=== PATIENT | female | born 1970 | race Caucasian/White ===

== ENCOUNTER → 2017-06-28 | Outpatient (REF) | payer MEDICARE, OTHER ==
[~2017-06-28] MED LIST: /PANT40TA PO; CALC1CAP31 PO; CARV25TA PO; CINA30TA PO; CIPR250T2 PO; COLA50CA3 PO; CORE25TA PO; DEPA500T2 PO; DEPO150I IM; EPOG2000 INJ; EPOG4000 SQ; FERR325T16 PO; FOLI1TAB4 PO; GABA-279 PO; K-TA10TA PO; MECL-68 PO; PANT40TA2 PO; POTA20TA PO; POTA75TA PO; PRIS50TA PO; RENATAB5 PO; RENV2TAB PO; SENS90TA PO; TYLE325T5 PO; VITA100037 PO; XANA0.25 PO; ZOLO20CO PO; ZOLO25TA PO; ZOLO50TA PO; [UNRECOGNIZED DRUG - OTHER] IM
== END ==
LOC: M LAB REF 17:27
PROVIDERS: ATTEND Internal Medicine Nephrology
DX: Q61.2 Polycystic kidney, adult type (principal); N39.0 Urinary tract infection, site not specified

== ENCOUNTER 2017-07-10 11:15 | Day surgery (SDC) | payer MEDICARE, OTHER ==
[~2017-07-10] VITALS: Ht 157.5 cm; Wt 105.7 kg
[2017-07-10] MEDS ORDERED: NS 1,000 ML IV SCH (12:15)
[2017-07-10] MEDS ORDERED: LIDOCAINE 2% INJ 100 MG/5 ML SDV (FOR ANES.) As Ordered ONE (13:13)
[2017-07-10] MEDS ORDERED: PROPOFOL 200 MG/20 ML VIAL As Ordered ONE ×2 (13:13→13:29)
--- NOTE | 2017-07-10 14:08 | ROOR ---
Patient Name: April Toure Procedure Date: 07/10/2017 1:11 PM Date of : 1970 Age: 47 Room: [facility] Gender: Female Note Status: Finalized Procedure: Colonoscopy Indications: Unexplained iron deficiency anemia Providers: Ezequiel Vazquez MD Referring MD: Angely Alonso MD Requesting Provider: Medicines: Monitored Anesthesia Care Complications: No immediate complications. Procedure: Pre-Anesthesia Assessment: - Prior to the procedure, a History and Physical was performed, and patient medications and allergies were reviewed. The patient is competent. The risks and benefits of the procedure and the sedation options and risks were discussed with the patient. All questions were answered and informed consent was obtained. Patient identification and proposed procedure were verified by the physician, the nurse and the rug inspector helper in the procedure room. Mental Status Examination: alert and oriented. Airway Examination: normal oropharyngeal airway and neck mobility. Respiratory Examination: clear to auscultation. CV Examination: normal. Prophylactic Antibiotics: The patient does not require prophylactic antibiotics. Prior Anticoagulants: The patient has taken no previous anticoagulant or antiplatelet agents. ASA Grade Assessment: IV - A patient with severe systemic disease that is a constant threat to life. After reviewing the risks and benefits, the patient was deemed in satisfactory condition to undergo the procedure. The anesthesia plan was to use monitored anesthesia care (MAC). Immediately prior to administration of medications, the patient was re-assessed for adequacy to receive sedatives. The heart rate, respiratory rate, oxygen saturations, blood pressure, adequacy of pulmonary ventilation, and response to care were monitored throughout the procedure. The physical status of the patient was re-assessed after the procedure. The Colonoscope was introduced through the anus and advanced to the terminal ileum, with identification of the appendiceal orifice and IC valve. The colonoscopy was performed without difficulty. The patient tolerated the procedure well. The quality of the bowel preparation was adequate to identify polyps 6 mm and larger in size and fair. The terminal ileum, ileocecal valve, appendiceal orifice, and rectum were photographed. Scope insertion time was 3 minutes. Scope withdrawal time was 10 minutes. The total duration of the procedure was 15 minutes. Findings: The perianal and digital rectal examinations were normal. The terminal ileum appeared normal. Non-bleeding external and internal hemorrhoids were found during retroflexion. The hemorrhoids were small. The exam was otherwise without abnormality on direct and retroflexion views. Impression: - Preparation of the colon was fair. - The examined portion of the ileum was normal. - Non-bleeding external and internal hemorrhoids. - The examination was otherwise normal on direct and retroflexion views. - No specimens collected. Recommendation: - Patient has a contact number available for emergencies. The signs and symptoms of potential delayed complications were discussed with the patient. Return to normal activities tomorrow. Written discharge instructions were provided to the patient. - Resume previous diet. - Continue present medications. - To take Pnatoprazole 40 mg daily ( study manager) for 6 weeks. - Repeat colonoscopy in 5 years for screening purposes and because the bowel preparation was suboptimal. - Return to GI clinic as previously scheduled on 07/19/2017 ar 11:15 AM. - Return to primary care physician. Ezequiel Vazquez MD Ezequiel Vazquez MD 07/10/2017 2:07:48 PM This report has been signed electronically. Number of Addenda: 0 Note Initiated On: 07/10/2017 1:11 PM Estimated Blood Loss: Estimated blood loss was minimal.
[2017-07-10 14:30] VITALS: BP 145/77
--- NOTE | 2017-07-10 14:42 | ROOR ---
Patient Name: April Toure Procedure Date: 07/10/2017 1:09 PM Date of : 1970 Age: 47 Room: [facility] Gender: Female Note Status: Finalized Procedure: Upper GI endoscopy Indications: Iron deficiency anemia, Gastrointestinal bleeding of unknown origin Providers: Ezequiel Vazquez MD Referring MD: Angely Alonso MD Requesting Provider: Medicines: Monitored Anesthesia Care Complications: No immediate complications. Procedure: Pre-Anesthesia Assessment: - Prior to the procedure, a History and Physical was performed, and patient medications and allergies were reviewed. The patient is competent. The risks and benefits of the procedure and the sedation options and risks were discussed with the patient. All questions were answered and informed consent was obtained. Patient identification and proposed procedure were verified by the physician, the nurse and the construction administrator in the procedure room. Mental Status Examination: alert and oriented. Airway Examination: normal oropharyngeal airway and neck mobility. Respiratory Examination: clear to auscultation. CV Examination: normal. Prophylactic Antibiotics: The patient does not require prophylactic antibiotics. Prior Anticoagulants: The patient has taken no previous anticoagulant or antiplatelet agents. ASA Grade Assessment: IV - A patient with severe systemic disease that is a constant threat to life. After reviewing the risks and benefits, the patient was deemed in satisfactory condition to undergo the procedure. The anesthesia plan was to use monitored anesthesia care (MAC). Immediately prior to administration of medications, the patient was re-assessed for adequacy to receive sedatives. The heart rate, respiratory rate, oxygen saturations, blood pressure, adequacy of pulmonary ventilation, and response to care were monitored throughout the procedure. The physical status of the patient was re-assessed after the procedure. The Endoscope was introduced through the mouth, and advanced to the second part of duodenum. The upper GI endoscopy was accomplished without difficulty. The patient tolerated the procedure well. Findings: The examined esophagus was normal. The Z-line was regular and was found 37 cm from the incisors. 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 Coagulation for bleeding prevention using argon beam at 0.8 liters/minute and 35 phelps was successful. Multiple 5 to 10 mm sessile fundic gland polyps with no bleeding and no stigmata of recent bleeding were found in the gastric fundus and in the gastric body. Biopsies were taken with a cold forceps for histology. Verification of patient identification for the specimen was done by the physician and nurse using the patient's name, date and medical record number. Estimated blood loss was minimal. The duodenal bulb and second portion of the duodenum were normal. Biopsies for histology were taken with a cold forceps for evaluation of celiac disease. Impression: - Normal esophagus. - Z-line regular, 37 cm from the incisors. - Gastric antral vascular ectasia without bleeding. Treated with argon beam coagulation. - Multiple fundic gland polyps. Biopsied. - Normal duodenal bulb and second portion of the duodenum. Biopsied. Recommendation: - Patient has a contact number available for emergencies. The signs and symptoms of potential delayed complications were discussed with the patient. Return to normal activities tomorrow. Written discharge instructions were provided to the patient. - Resume previous diet. - Continue present medications. - Use Protonix (pantoprazole) 40 mg PO daily in morning (1/2 hour before breakfast) for 8 weeks. - Repeat upper endoscopy in 3 months for retreatment based on clinical course.. - Return to GI clinic as previously scheduled on 07/19/2017 at 11:15 AM. - Return to primary care physician. Ezequiel Vazquez MD Ezequiel Vazquez MD 07/10/2017 2:42:05 PM This report has been signed electronically. Number of Addenda: 0 Note Initiated On: 07/10/2017 1:09 PM Estimated Blood Loss: Estimated blood loss was minimal.
== END 2017-07-10 14:39 | disposition home or self-care (01) ==
LOC: M OPP 11:15 → EDSTATUS 12:55 → M OPP 14:39
PROVIDERS: ATTEND Internal Medicine Gastroenterology
DX: D50.9 Iron deficiency anemia, unspecified (principal); K64.4 Residual hemorrhoidal skin tags; K64.8 Other hemorrhoids; K92.2 Gastrointestinal hemorrhage, unspecified; K31.819 Angiodysplasia of stomach and duodenum without bleeding; K31.7 Polyp of stomach and duodenum; F41.9 Anxiety disorder, unspecified; I12.0 Hypertensive chronic kidney disease with stage 5 chronic kidney disease or end stage renal disease; F33.9 Major depressive disorder, recurrent, unspecified; N18.6 End stage renal disease; Q61.2 Polycystic kidney, adult type; N80.9 Endometriosis, unspecified; Z99.2 Dependence on renal dialysis; Z79.899 Other long term (current) drug therapy; Z88.5 Allergy status to narcotic agent

== ENCOUNTER → 2017-09-11 | Day surgery (SDC) | payer MEDICARE, OTHER ==
[~2017-09-11] VITALS: Ht 157.5 cm; Wt 104.3 kg
[~2017-09-11] MED LIST changes: +AURY1TAB PO; +HEPA1000VL PD; +LIDOCAINE 2% INJ 100 MG/5 ML SDV (FOR ANES.) As Ordered ONE; +NS 1,000 ML IV ONE; +PROPOFOL 500 MG/50 ML VIAL As Ordered ONE
[2017-09-11 13:28] VITALS: BP 116/66
--- NOTE | 2017-09-11 14:01 | ROOR ---
Patient Name: April Toure Procedure Date: 09/11/2017 12:25 PM Date of : 1970 Age: 47 Room: [facility] Gender: Female Note Status: Finalized Procedure: Upper GI endoscopy Indications: Treatment of bleeding vascular abnormality in the stomach, Watermelon stomach (GAVE syndrome) Providers: Ezequiel Vazquez MD Referring MD: Angely Alonso MD Requesting Provider: Medicines: Monitored Anesthesia Care Complications: No immediate complications. Procedure: Pre-Anesthesia Assessment: - Prior to the procedure, a History and Physical was performed, and patient medications and allergies were reviewed. The patient is competent. The risks and benefits of the procedure and the sedation options and risks were discussed with the patient. All questions were answered and informed consent was obtained. Patient identification and proposed procedure were verified by the physician, the nurse and the anesthesiologist in the procedure room. Mental Status Examination: alert and oriented. Airway Examination: normal oropharyngeal airway and neck mobility. Respiratory Examination: clear to auscultation. CV Examination: normal. Prophylactic Antibiotics: The patient does not require prophylactic antibiotics. Prior Anticoagulants: The patient has taken no previous anticoagulant or antiplatelet agents. ASA Grade Assessment: III - A patient with severe systemic disease. After reviewing the risks and benefits, the patient was deemed in satisfactory condition to undergo the procedure. The anesthesia plan was to use monitored anesthesia care (MAC). Immediately prior to administration of medications, the patient was re-assessed for adequacy to receive sedatives. The heart rate, respiratory rate, oxygen saturations, blood pressure, adequacy of pulmonary ventilation, and response to care were monitored throughout the procedure. The physical status of the patient was re-assessed after the procedure. The Endoscope was introduced through the mouth, and advanced to the second part of duodenum. The upper GI endoscopy was accomplished without difficulty. The patient tolerated the procedure well. Findings: The examined esophagus was normal. Multiple 8 mm sessile polyps with no bleeding and no stigmata of recent bleeding were found in the gastric fundus and in the gastric body. Severe gastric antral vascular ectasia without bleeding was present in the gastric antrum. Coagulation for bleeding prevention using argon plasma at 0.8 liters/minute and 35 phelps was successful. The duodenal bulb and second portion of the duodenum were normal. Impression: - Normal esophagus. - Multiple gastric polyps. - Gastric antral vascular ectasia without bleeding. Treated with argon plasma coagulation (APC). - Normal duodenal bulb and second portion of the duodenum. - No specimens collected. Recommendation: - Patient has a contact number available for emergencies. The signs and symptoms of potential delayed complications were discussed with the patient. Return to normal activities tomorrow. Written discharge instructions were provided to the patient. - Resume previous diet. - Continue present medications. - Check blood tests for iron / transferrin saturation and Hb/HCT in 3 months. - Repeat upper endoscopy based on the Blood test results. - Return to GI clinic 1 - 2 weeks. Please call GI clinic @ [phone] for apppointment date and time. - Return to primary care physician. Ezequiel Vazquez MD Ezequiel Vazquez MD 09/11/2017 2:01:31 PM This report has been signed electronically. Number of Addenda: 0 Note Initiated On: 09/11/2017 12:25 PM Estimated Blood Loss: Estimated blood loss was minimal.
== END | disposition home or self-care (01) ==
LOC: M OPP 10:56
PROVIDERS: ATTEND Internal Medicine Gastroenterology
DX: Z09 Encounter for follow-up examination after completed treatment for conditions other than malignant neoplasm (principal); K31.819 Angiodysplasia of stomach and duodenum without bleeding; K92.2 Gastrointestinal hemorrhage, unspecified; K31.7 Polyp of stomach and duodenum; I12.9 Hypertensive chronic kidney disease with stage 1 through stage 4 chronic kidney disease, or unspecified chronic kidney disease; F41.9 Anxiety disorder, unspecified; F32.9 Major depressive disorder, single episode, unspecified; N18.9 Chronic kidney disease, unspecified; Z99.2 Dependence on renal dialysis; Q61.3 Polycystic kidney, unspecified; Z88.5 Allergy status to narcotic agent; Z79.899 Other long term (current) drug therapy

== ENCOUNTER → 2017-11-16 | Outpatient (CLI) | payer MEDICARE, BC | LOC: M RAD 09:50 | DX: N18.6 End stage renal disease (principal); E21.3 Hyperparathyroidism, unspecified | CPT/HCPCS: 78070 ==

== ENCOUNTER → 2017-12-04 | Outpatient (CLI) | payer MEDICARE, BC | LOC: M SLEEP HO 10:47 | DX: G47.9 Sleep disorder, unspecified (principal); R40.0 Somnolence; G25.81 Restless legs syndrome | CPT/HCPCS: G0399 ==

== ENCOUNTER 2018-02-18 15:43 | Inpatient (IN) | payer MEDICARE, BC ==
[2018-02-18 16:55] LABS: HEMATOCRIT 28.6 % (36.0-47.0); MEAN CORPUSCULAR HEMOGLOBIN 31.8 pg (27.0-33.0); MEAN CORPUSCULAR HGB CONC 31.5 g/dl (32.0-36.5); MEAN CORPUSCULAR VOLUME 101.1 fl (80.0-96.0); PLATELET COUNT, AUTOMATED 203 10^3/uL (150-450); RED BLOOD COUNT 2.83 10^6/uL (4.00-5.40); RED CELL DISTRIBUTION WIDTH 15.8 % (11.5-14.5); WHITE BLOOD COUNT 7.3 10^3/uL (4.0-10.0)
[2018-02-18 17:06] LABS: ANION GAP 8 MEQ/L (8-16); BLOOD UREA NITROGEN 45 MG/DL (7-18); CALCIUM LEVEL 6.6 MG/DL (8.5-10.1); CARBON DIOXIDE LEVEL 25 MEQ/L (21-32); CHLORIDE LEVEL 106 MEQ/L (98-107); GLOMERULAR FILTRATION RATE 3.6 (>58); GLUCOSE, FASTING 91 MG/DL (70-100); SODIUM LEVEL 139 MEQ/L (136-145)
[2018-02-18 17:12] LABS: POTASSIUM SERUM 5.2 MEQ/L (3.5-5.1)
[2018-02-18] MEDS: CALCIUM GLUCONATE 1,000 MG in D5W MINI-BAG PLUS 100 ML IV (17:40)
[2018-02-18] MEDS ORDERED: ALPRAZolam 0.25 MG TAB PO (19:00)
[2018-02-18] MEDS ORDERED: ACETAMINOPHEN TAB 650MG DOSE (2X325MG) PO (19:00)
[2018-02-18] MEDS ORDERED: ONDANSETRON 4MG/2ML VIAL (J2405) IV (19:00)
[2018-02-18 19:35] LABS: ALBUMIN 3.3 GM/DL (3.2-5.2); ALBUMIN/GLOBULIN RATIO 0.87 (1.00-1.93); ALKALINE PHOSPHATASE 138 U/L (45-117); ALT/SGPT 19 U/L (12-78); AST/SGOT 14 U/L (7-37); BILIRUBIN,DIRECT 0.1 MG/DL (0.0-0.2); BILIRUBIN,TOTAL 0.3 MG/DL (0.2-1.0); MAGNESIUM LEVEL 2.1 MG/DL (1.8-2.4); TOTAL PROTEIN 7.1 GM/DL (6.4-8.2)
[2018-02-18 19:46] LABS: PHOSPHORUS LEVEL 5.3 MG/DL (2.5-4.9)
[2018-02-18 20:41] LABS: IONIZED CALCIUM 3.4 MG/DL (4.5-5.3)
[2018-02-18] MEDS: CALCITRIOL 0.25 MCG CAP (S0169) PO (21:33)
[2018-02-18] MEDS: CARVedilol 12.5 MG TAB PO (21:34)
[2018-02-18] MEDS: GABAPENTIN 100 MG CAP PO (21:34)
[2018-02-18] MEDS: PANTOPRAZOLE 40MG TAB (PROTONIX) PO (21:35)
[2018-02-18] MEDS: FOLIC ACID 1 MG TAB PO (21:35)
[2018-02-19] MEDS: CALCIUM GLUCONATE 1,000MG/10ML VIAL (100MG/ML) (J0610) XX ×4 (00:20→22:58)
[2018-02-19] MEDS: CALCIUM/VITAMIN D 500 MG TAB PO ×3 (00:20→22:20)
[2018-02-19] MEDS: D5W IV ×2 (01:34→14:02)
[2018-02-19] MEDS: CALCIUM GLUCONATE IV ×2 (01:34→14:02)
[2018-02-19 02:03] LABS: BF MONONUCLEAR CELL % 91.7 % (0-0); BF POLYMORPHONUCLEAR CELL % 8.3 % (0-0); RBC BODY FLUID < 2 10^3/uL (<2); WBC BODY FLUID 12 /uL (0-10)
[2018-02-19 02:09] LABS: SOURCE, BODY FLUID PERITONEAL DIALYSATE
[2018-02-19 02:10] LABS: APPEARANCE, BODY FLUID CLEAR (CLEAR); PERITONEAL DIALYSATE FL COLOR COLORLESS (COLORLESS)
[2018-02-19 02:11] LABS: BF DIFF IF INDICATED? YES (NO)
[2018-02-19 04:38] LABS: HEMATOCRIT 26.3 % (36.0-47.0); HEMOGLOBIN 8.4 g/dl (12.0-15.5); MEAN CORPUSCULAR HEMOGLOBIN 32.1 pg (27.0-33.0); MEAN CORPUSCULAR HGB CONC 31.9 g/dl (32.0-36.5); MEAN CORPUSCULAR VOLUME 100.4 fl (80.0-96.0); PLATELET COUNT, AUTOMATED 176 10^3/uL (150-450); RED BLOOD COUNT 2.62 10^6/uL (4.00-5.40); RED CELL DISTRIBUTION WIDTH 15.9 % (11.5-14.5); WHITE BLOOD COUNT 7.8 10^3/uL (4.0-10.0)
[2018-02-19 04:39] LABS: IONIZED CALCIUM 3.4 MG/DL (4.5-5.3)
[2018-02-19 05:20] LABS: ALBUMIN 3.1 GM/DL (3.2-5.2); ALBUMIN/GLOBULIN RATIO 0.97 (1.00-1.93); ALKALINE PHOSPHATASE 139 U/L (45-117); ALT/SGPT 15 U/L (12-78); ANION GAP 12 MEQ/L (8-16); AST/SGOT 13 U/L (7-37); BILIRUBIN,TOTAL 0.4 MG/DL (0.2-1.0); BLOOD UREA NITROGEN 45 MG/DL (7-18); CALCIUM LEVEL 6.4 MG/DL (8.5-10.1); CARBON DIOXIDE LEVEL 23 MEQ/L (21-32); CHLORIDE LEVEL 105 MEQ/L (98-107); FERRITIN 189 NG/ML (8-252); GLOMERULAR FILTRATION RATE 3.5 (>58); GLUCOSE, FASTING 96 MG/DL (70-100); IRON (FE) 58 UG/DL (50-170); MAGNESIUM LEVEL 1.7 MG/DL (1.8-2.4); PERCENT SATURATION 21.5 % (13.2-45.0); POTASSIUM SERUM 4.9 MEQ/L (3.5-5.1); SODIUM LEVEL 140 MEQ/L (136-145); TOTAL IRON BINDING CAPACITY 270 UG/DL (250-450); TOTAL PROTEIN 6.3 GM/DL (6.4-8.2)
[2018-02-19] MEDS: CALCITRIOL 0.25 MCG CAP (S0169) PO (08:43)
[2018-02-19] MEDS: SERTRALINE HCL 25 MG TABLET PO (08:43)
[2018-02-19] MEDS: CARVedilol 12.5 MG TAB PO ×2 (08:43→22:19)
[2018-02-19] MEDS: MAG SULF 1GM/100ML (MAG RUN) 1 GM in APPROPRIATE DILUENT 1 EA IV (08:58)
[2018-02-19 11:02] LABS: IONIZED CALCIUM 3.8 MG/DL (4.5-5.3)
[2018-02-19] MEDS ORDERED: IRON SUCROSE 100MG 5ML VIAL (J1756 PER 1MG) IV (12:30)
[2018-02-19] MEDS: IRON SUCROSE 200 MG in NS 100 ML IV (14:03)
[2018-02-19 20:31] LABS: IONIZED CALCIUM 4.1 MG/DL (4.5-5.3)
[2018-02-19] MEDS: GABAPENTIN 100 MG CAP PO (22:19)
[2018-02-19] MEDS: FOLIC ACID 1 MG TAB PO (22:19)
[2018-02-19] MEDS: PANTOPRAZOLE 40MG TAB (PROTONIX) PO (22:20)
[2018-02-19] MEDS: DARBEPOETIN 100 MCG/0.5 ML *NON-DIALYSIS* SYRINGE (J0881) SC (22:45)
[2018-02-20 04:41] LABS: HEMOGLOBIN 8.6 g/dl (12.0-15.5); MEAN CORPUSCULAR HEMOGLOBIN 32.6 pg (27.0-33.0); MEAN CORPUSCULAR HGB CONC 33.1 g/dl (32.0-36.5); MEAN CORPUSCULAR VOLUME 98.5 fl (80.0-96.0); PLATELET COUNT, AUTOMATED 178 10^3/uL (150-450); RED BLOOD COUNT 2.64 10^6/uL (4.00-5.40); RED CELL DISTRIBUTION WIDTH 15.7 % (11.5-14.5); WHITE BLOOD COUNT 7.4 10^3/uL (4.0-10.0)
[2018-02-20 04:43] LABS: IONIZED CALCIUM 3.7 MG/DL (4.5-5.3)
[2018-02-20 05:09] LABS: ALBUMIN 2.9 GM/DL (3.2-5.2); ALBUMIN/GLOBULIN RATIO 0.94 (1.00-1.93); ALKALINE PHOSPHATASE 133 U/L (45-117); ALT/SGPT 16 U/L (12-78); ANION GAP 10 MEQ/L (8-16); AST/SGOT 28 U/L (7-37); BILIRUBIN,TOTAL 0.4 MG/DL (0.2-1.0); BLOOD UREA NITROGEN 42 MG/DL (7-18); CALCIUM LEVEL 7.4 MG/DL (8.5-10.1); CARBON DIOXIDE LEVEL 24 MEQ/L (21-32); CHLORIDE LEVEL 103 MEQ/L (98-107); GLOMERULAR FILTRATION RATE 3.7 (>58); GLUCOSE, FASTING 94 MG/DL (70-100); MAGNESIUM LEVEL 2.1 MG/DL (1.8-2.4); SODIUM LEVEL 137 MEQ/L (136-145)
[2018-02-20 05:10] LABS: POTASSIUM SERUM 5.2 MEQ/L (3.5-5.1)
[2018-02-20] MEDS: CALCIUM GLUCONATE 1,000MG/10ML VIAL (100MG/ML) (J0610) XX ×3 (06:08→22:29)
[2018-02-20] MEDS: CARVedilol 12.5 MG TAB PO ×2 (08:13→22:19)
[2018-02-20] MEDS: CALCITRIOL 0.25 MCG CAP (S0169) PO (08:13)
[2018-02-20] MEDS: CALCIUM/VITAMIN D 500 MG TAB PO ×2 (08:13→22:21)
[2018-02-20] MEDS: SERTRALINE HCL 25 MG TABLET PO (08:13)
[2018-02-20] MEDS: DESVENLAFAXINE ER 50 MG TABLET (PRISTIQ) PO (09:00)
[2018-02-20] MEDS: CALCIUM GLUCONATE IV (11:17)
[2018-02-20] MEDS: D5W IV (11:17)
[2018-02-20 11:54] LABS: IONIZED CALCIUM 3.9 MG/DL (4.5-5.3)
[2018-02-20] MEDS: IRON SUCROSE 200 MG in NS 100 ML IV (14:00)
[2018-02-20 21:27] LABS: IONIZED CALCIUM 3.9 MG/DL (4.5-5.3)
[2018-02-20 22:13] LABS: CALCIUM LEVEL 8.1 MG/DL (8.5-10.1)
[2018-02-20] MEDS: FOLIC ACID 1 MG TAB PO (22:19)
[2018-02-20] MEDS: GABAPENTIN 100 MG CAP PO (22:20)
[2018-02-20] MEDS: PANTOPRAZOLE 40MG TAB (PROTONIX) PO (22:21)
[2018-02-21] MEDS ORDERED: D5W IV (01:00)
[2018-02-21] MEDS ORDERED: CALCIUM GLUCONATE IV (01:00)
[2018-02-21] MEDS: CALCIUM GLUCONATE IV (05:01)
[2018-02-21] MEDS: D5W IV (05:01)
[2018-02-21 05:13] LABS: IONIZED CALCIUM 3.9 MG/DL (4.5-5.3)
[2018-02-21 05:17] LABS: HEMATOCRIT 28.2 % (36.0-47.0); HEMOGLOBIN 9.1 g/dl (12.0-15.5); MEAN CORPUSCULAR HEMOGLOBIN 31.9 pg (27.0-33.0); MEAN CORPUSCULAR HGB CONC 32.3 g/dl (32.0-36.5); MEAN CORPUSCULAR VOLUME 98.9 fl (80.0-96.0); PLATELET COUNT, AUTOMATED 196 10^3/uL (150-450); RED BLOOD COUNT 2.85 10^6/uL (4.00-5.40); RED CELL DISTRIBUTION WIDTH 15.5 % (11.5-14.5)
[2018-02-21 05:36] LABS: ALBUMIN 3.2 GM/DL (3.2-5.2); ALBUMIN/GLOBULIN RATIO 0.94 (1.00-1.93); ALKALINE PHOSPHATASE 151 U/L (45-117); ALT/SGPT 17 U/L (12-78); ANION GAP 11 MEQ/L (8-16); AST/SGOT 9 U/L (7-37); BILIRUBIN,TOTAL 0.4 MG/DL (0.2-1.0); BLOOD UREA NITROGEN 39 MG/DL (7-18); CALCIUM LEVEL 7.7 MG/DL (8.5-10.1); CARBON DIOXIDE LEVEL 25 MEQ/L (21-32); CHLORIDE LEVEL 102 MEQ/L (98-107); GLOMERULAR FILTRATION RATE 3.6 (>58); GLUCOSE, FASTING 91 MG/DL (70-100); POTASSIUM SERUM 4.7 MEQ/L (3.5-5.1); SODIUM LEVEL 138 MEQ/L (136-145); TOTAL PROTEIN 6.6 GM/DL (6.4-8.2)
[2018-02-21] MEDS: CALCIUM GLUCONATE 1,000MG/10ML VIAL (100MG/ML) (J0610) XX ×5 (06:07→21:58)
[2018-02-21] MEDS: CALCIUM/VITAMIN D 500 MG TAB PO ×2 (09:06→21:57)
[2018-02-21] MEDS: CALCITRIOL 0.25 MCG CAP (S0169) PO (09:06)
[2018-02-21] MEDS: SERTRALINE HCL 25 MG TABLET PO (09:07)
[2018-02-21] MEDS: CARVedilol 12.5 MG TAB PO ×2 (09:09→21:58)
[2018-02-21 12:08] LABS: IONIZED CALCIUM 4.1 MG/DL (4.5-5.3)
[2018-02-21] MEDS: PANTOPRAZOLE 40MG TAB (PROTONIX) PO (21:57)
[2018-02-21] MEDS: GABAPENTIN 100 MG CAP PO (21:57)
[2018-02-21] MEDS: FOLIC ACID 1 MG TAB PO (21:58)
[2018-02-22] MEDS: CALCIUM GLUCONATE IV (01:54)
[2018-02-22] MEDS: D5W IV (01:54)
[2018-02-22] MEDS: CALCIUM GLUCONATE 1,000MG/10ML VIAL (100MG/ML) (J0610) XX ×3 (06:08→13:34)
[2018-02-22 07:22] LABS: HEMATOCRIT 26.7 % (36.0-47.0); HEMOGLOBIN 8.6 g/dl (12.0-15.5); MEAN CORPUSCULAR HGB CONC 32.2 g/dl (32.0-36.5); MEAN CORPUSCULAR VOLUME 99.3 fl (80.0-96.0); PLATELET COUNT, AUTOMATED 174 10^3/uL (150-450); RED BLOOD COUNT 2.69 10^6/uL (4.00-5.40); RED CELL DISTRIBUTION WIDTH 15.8 % (11.5-14.5); WHITE BLOOD COUNT 7.6 10^3/uL (4.0-10.0)
[2018-02-22 07:47] LABS: ALBUMIN 2.9 GM/DL (3.2-5.2); ALBUMIN/GLOBULIN RATIO 0.81 (1.00-1.93); ALKALINE PHOSPHATASE 141 U/L (45-117); ALT/SGPT 14 U/L (12-78); ANION GAP 12 MEQ/L (8-16); AST/SGOT 5 U/L (7-37); BILIRUBIN,TOTAL 0.4 MG/DL (0.2-1.0); BLOOD UREA NITROGEN 36 MG/DL (7-18); CALCIUM LEVEL 8.3 MG/DL (8.5-10.1); CARBON DIOXIDE LEVEL 24 MEQ/L (21-32); CHLORIDE LEVEL 100 MEQ/L (98-107); GLOMERULAR FILTRATION RATE 3.7 (>58); GLUCOSE, FASTING 106 MG/DL (70-100); MAGNESIUM LEVEL 1.9 MG/DL (1.8-2.4); POTASSIUM SERUM 4.3 MEQ/L (3.5-5.1); SODIUM LEVEL 136 MEQ/L (136-145); TOTAL PROTEIN 6.5 GM/DL (6.4-8.2)
[2018-02-22] MEDS: CALCIUM/VITAMIN D 500 MG TAB PO (08:54)
[2018-02-22] MEDS: CALCITRIOL 0.25 MCG CAP (S0169) PO (08:54)
[2018-02-22] MEDS: SERTRALINE HCL 25 MG TABLET PO (08:54)
[2018-02-22] MEDS: DESVENLAFAXINE ER 50 MG TABLET (PRISTIQ) PO (08:54)
[2018-02-22] MEDS: CARVedilol 12.5 MG TAB PO (08:55)
== END 2018-02-22 13:50 | disposition home or self-care (01) | DRG 640 ==
LOC: M MSPAV 02-21 12:27 → M PCU 02-19 15:31 → M ED 15:43 → M ED INP 18:51
PROC: 3E1M39Z Irrigation of Peritoneal Cavity using Dialysate, Percutaneous Approach (ICD-10-PCS; principal; 2018-02-18)
DX: E83.81 Hungry bone syndrome (principal); N18.6 End stage renal disease; I12.0 Hypertensive chronic kidney disease with stage 5 chronic kidney disease or end stage renal disease; Q61.3 Polycystic kidney, unspecified; F41.9 Anxiety disorder, unspecified; F32.9 Major depressive disorder, single episode, unspecified; K21.9 Gastro-esophageal reflux disease without esophagitis; Z99.2 Dependence on renal dialysis; Z79.899 Other long term (current) drug therapy; Z88.5 Allergy status to narcotic agent; Z88.8 Allergy status to other drugs, medicaments and biological substances; D50.9 Iron deficiency anemia, unspecified; E83.42 Hypomagnesemia

== ENCOUNTER 2018-03-02 16:04 | Inpatient (IN) | payer MEDICARE, BC ==
[2018-03-02 17:01] LABS: HEMATOCRIT 29.7 % (36.0-47.0); HEMOGLOBIN 9.8 g/dl (12.0-15.5); MEAN CORPUSCULAR HEMOGLOBIN 32.8 pg (27.0-33.0); MEAN CORPUSCULAR VOLUME 99.3 fl (80.0-96.0); PLATELET COUNT, AUTOMATED 232 10^3/uL (150-450); RED BLOOD COUNT 2.99 10^6/uL (4.00-5.40); RED CELL DISTRIBUTION WIDTH 15.7 % (11.5-14.5); WHITE BLOOD COUNT 8.6 10^3/uL (4.0-10.0)
[2018-03-02 17:18] LABS: ANION GAP 11 MEQ/L (8-16); BLOOD UREA NITROGEN 42 MG/DL (7-18); CALCIUM LEVEL 6.3 MG/DL (8.5-10.1); CARBON DIOXIDE LEVEL 24 MEQ/L (21-32); CHLORIDE LEVEL 100 MEQ/L (98-107); CK-MB VALUE MASS < 1.0 NG/ML (<3.6); CPK CREATINE PHOSPHOKINASE 164 U/L (26-192); GLOMERULAR FILTRATION RATE 3.4 (>58); GLUCOSE, FASTING 97 MG/DL (70-100); POTASSIUM SERUM 4.1 MEQ/L (3.5-5.1); SODIUM LEVEL 135 MEQ/L (136-145)
[2018-03-02 17:25] LABS: VENOUS BASE EXCESS -1.6 (-2.0-2.0); VENOUS HCO3 23.4 MEQ/L (23.0-27.0); VENOUS PARTIAL PRESSURE CO2 40.2 mmHg (38.0-50.0); VENOUS PARTIAL PRESSURE O2 41.5 mmHg (30.0-50.0); VENOUS PH 7.382 UNITS (7.330-7.430); VENOUS STANDARD HCO3 22.6 MEQ/L; VENOUS TOTAL CO2 24.6 MEQ/L (24.0-28.0)
[2018-03-02 17:29] LABS: IONIZED CALCIUM 3.2 MG/DL (4.5-5.3)
[2018-03-02] MEDS: ALPRAZolam 0.5 MG TAB PO (17:30)
[2018-03-02] MEDS: CALCIUM GLUCONATE 1,000 MG in D5W MINI-BAG PLUS 100 ML IV (17:53)
[2018-03-02] MEDS ORDERED: ACETAMINOPHEN TAB 650MG DOSE (2X325MG) PO (20:30)
[2018-03-02] MEDS: D5W IV (23:36)
[2018-03-02] MEDS: CALCIUM GLUCONATE IV (23:36)
[2018-03-02] MEDS: CALCIUM/VITAMIN D 500 MG TAB PO (23:41)
[2018-03-02] MEDS: CARVedilol 12.5 MG TAB PO (23:41)
[2018-03-02] MEDS: PANTOPRAZOLE 40MG TAB (PROTONIX) PO (23:41)
[2018-03-02] MEDS: HEPARIN SOD (PORCINE) 5000 UNITS/ML VIAL SC (23:42)
[2018-03-02] MEDS: GABAPENTIN 100 MG CAP PO (23:42)
[2018-03-02] MEDS: FOLIC ACID 1 MG TAB PO (23:42)
[2018-03-03 03:50] LABS: BASO % 0.4 % (0.0-1.0); EOS # 0.6 10^3/uL (0.0-0.50); EOS % 8.6 % (0.0-3.0); HEMOGLOBIN 9.2 g/dl (12.0-15.5); IMMATURE GRANULOCYTE % 0.1 % (0-3.0); LYMPH # 2.3 10^3/uL (1.5-4.5); MEAN CORPUSCULAR HEMOGLOBIN 32.4 pg (27.0-33.0); MEAN CORPUSCULAR HGB CONC 32.9 g/dl (32.0-36.5); MEAN CORPUSCULAR VOLUME 98.6 fl (80.0-96.0); MONO # 0.4 10^3/uL (0.0-0.8); MONO % 6.2 % (0.0-5.0); NEUTROPHILS # 3.7 10^3/uL (1.8-7.7); NEUTROPHILS % 51.7 % (36.0-66.0); PLATELET COUNT, AUTOMATED 198 10^3/uL (150-450); RED BLOOD COUNT 2.84 10^6/uL (4.00-5.40); RED CELL DISTRIBUTION WIDTH 15.4 % (11.5-14.5); WHITE BLOOD COUNT 7.1 10^3/uL (4.0-10.0)
[2018-03-03 03:55] LABS: IONIZED CALCIUM 3.3 MG/DL (4.5-5.3)
[2018-03-03] MEDS: ALPRAZolam 0.25 MG TAB PO (03:55)
[2018-03-03] MEDS ORDERED: CALCIUM GLUCONATE 1,000 MG in D5W MINI-BAG PLUS 100 ML IV (04:00)
[2018-03-03 04:11] LABS: ANION GAP 11 MEQ/L (8-16); BLOOD UREA NITROGEN 42 MG/DL (7-18); CALCIUM LEVEL 6.4 MG/DL (8.5-10.1); CARBON DIOXIDE LEVEL 25 MEQ/L (21-32); CHLORIDE LEVEL 102 MEQ/L (98-107); GLOMERULAR FILTRATION RATE 3.3 (>58); GLUCOSE, FASTING 109 MG/DL (70-100); MAGNESIUM LEVEL 2.1 MG/DL (1.8-2.4); POTASSIUM SERUM 3.6 MEQ/L (3.5-5.1); SODIUM LEVEL 138 MEQ/L (136-145)
[2018-03-03] MEDS: CALCIUM GLUCONATE 1,000 MG in D5W MINI-BAG PLUS 100 ML IV (04:36)
[2018-03-03] MEDS: HEPARIN SOD (PORCINE) 5000 UNITS/ML VIAL SC ×3 (05:57→22:17)
[2018-03-03] MEDS: CALCIUM/VITAMIN D 500 MG TAB PO ×3 (08:47→20:20)
[2018-03-03] MEDS: CALCITRIOL 0.25 MCG CAP (S0169) PO (08:47)
[2018-03-03] MEDS: SERTRALINE HCL 25 MG TABLET PO (08:48)
[2018-03-03] MEDS: DESVENLAFAXINE ER 50 MG TABLET (PRISTIQ) PO (08:48)
[2018-03-03] MEDS: CARVedilol 12.5 MG TAB PO ×2 (08:48→20:19)
[2018-03-03 11:01] LABS: IONIZED CALCIUM 3.5 MG/DL (4.5-5.3)
[2018-03-03] MEDS: CALCIUM GLUCONATE IV (11:45)
[2018-03-03] MEDS: D5W IV (11:45)
[2018-03-03 16:46] LABS: IONIZED CALCIUM 3.6 MG/DL (4.5-5.3)
[2018-03-03 17:04] LABS: CALCIUM LEVEL 7.1 MG/DL (8.5-10.1)
[2018-03-03] MEDS: PANTOPRAZOLE 40MG TAB (PROTONIX) PO (20:20)
[2018-03-03] MEDS: GABAPENTIN 100 MG CAP PO (20:20)
[2018-03-03] MEDS: FOLIC ACID 1 MG TAB PO (20:20)
[2018-03-03 21:34] LABS: IONIZED CALCIUM 3.7 MG/DL (4.5-5.3)
[2018-03-03 21:45] LABS: CALCIUM LEVEL 7.8 MG/DL (8.5-10.1)
[2018-03-04 04:59] LABS: IONIZED CALCIUM 3.9 MG/DL (4.5-5.3)
[2018-03-04 05:17] LABS: CALCIUM LEVEL 8.2 MG/DL (8.5-10.1)
[2018-03-04] MEDS: HEPARIN SOD (PORCINE) 5000 UNITS/ML VIAL SC ×3 (06:29→21:19)
[2018-03-04 08:40] LABS: PTH INTACT < 6.3 PG/ML (18.5-88.0)
[2018-03-04] MEDS: SERTRALINE HCL 25 MG TABLET PO (08:41)
[2018-03-04] MEDS: CARVedilol 12.5 MG TAB PO ×2 (08:41→21:18)
[2018-03-04] MEDS: CALCIUM/VITAMIN D 500 MG TAB PO ×3 (08:41→21:19)
[2018-03-04] MEDS: CALCITRIOL 0.25 MCG CAP (S0169) PO (08:42)
[2018-03-04 08:51] LABS: TOTAL 25(OH) VITAMIN D 19.3 NG/ML (30.0-100.0)
[2018-03-04 09:11] LABS: HEMATOCRIT 29.6 % (36.0-47.0); HEMOGLOBIN 9.8 g/dl (12.0-15.5); MEAN CORPUSCULAR HEMOGLOBIN 32.5 pg (27.0-33.0); MEAN CORPUSCULAR HGB CONC 33.1 g/dl (32.0-36.5); PLATELET COUNT, AUTOMATED 230 10^3/uL (150-450); RED BLOOD COUNT 3.02 10^6/uL (4.00-5.40); RED CELL DISTRIBUTION WIDTH 15.4 % (11.5-14.5); WHITE BLOOD COUNT 7.1 10^3/uL (4.0-10.0)
[2018-03-04 09:15] LABS: ANION GAP 13 MEQ/L (8-16); BLOOD UREA NITROGEN 43 MG/DL (7-18); CALCIUM LEVEL 8.1 MG/DL (8.5-10.1); CARBON DIOXIDE LEVEL 25 MEQ/L (21-32); CHLORIDE LEVEL 96 MEQ/L (98-107); GLOMERULAR FILTRATION RATE 3.5 (>58); GLUCOSE, FASTING 102 MG/DL (70-100); SODIUM LEVEL 134 MEQ/L (136-145)
[2018-03-04 10:36] LABS: IONIZED CALCIUM 3.9 MG/DL (4.5-5.3)
[2018-03-04 10:47] LABS: CALCIUM LEVEL 7.8 MG/DL (8.5-10.1)
[2018-03-04] MEDS: CALCIUM GLUCONATE IV (12:17)
[2018-03-04] MEDS: D5W IV (12:17)
[2018-03-04 16:48] LABS: CALCIUM LEVEL 8.2 MG/DL (8.5-10.1)
[2018-03-04] MEDS: FOLIC ACID 1 MG TAB PO (21:18)
[2018-03-04] MEDS: GABAPENTIN 100 MG CAP PO (21:18)
[2018-03-04] MEDS: PANTOPRAZOLE 40MG TAB (PROTONIX) PO (21:19)
[2018-03-04 21:58] LABS: IONIZED CALCIUM 4.1 MG/DL (4.5-5.3)
[2018-03-04 22:11] LABS: CALCIUM LEVEL 8.9 MG/DL (8.5-10.1)
[2018-03-05] MEDS: CALCIUM CHLORIDE 10% 1 GM in D5W 100 ML IV (03:56)
[2018-03-05 04:49] LABS: HEMATOCRIT 28.4 % (36.0-47.0); HEMOGLOBIN 9.4 g/dl (12.0-15.5); MEAN CORPUSCULAR HEMOGLOBIN 32.3 pg (27.0-33.0); MEAN CORPUSCULAR HGB CONC 33.1 g/dl (32.0-36.5); MEAN CORPUSCULAR VOLUME 97.6 fl (80.0-96.0); PLATELET COUNT, AUTOMATED 199 10^3/uL (150-450); RED BLOOD COUNT 2.91 10^6/uL (4.00-5.40); WHITE BLOOD COUNT 6.2 10^3/uL (4.0-10.0)
[2018-03-05 05:09] LABS: CALCIUM LEVEL 10.6 MG/DL (8.5-10.1)
[2018-03-05 05:13] LABS: ANION GAP 11 MEQ/L (8-16); BLOOD UREA NITROGEN 42 MG/DL (7-18); CALCIUM LEVEL 10.3 MG/DL (8.5-10.1); CARBON DIOXIDE LEVEL 27 MEQ/L (21-32); CHLORIDE LEVEL 97 MEQ/L (98-107); GLOMERULAR FILTRATION RATE 3.6 (>58); GLUCOSE, FASTING 107 MG/DL (70-100); MAGNESIUM LEVEL 2.1 MG/DL (1.8-2.4); POTASSIUM SERUM 4.2 MEQ/L (3.5-5.1); SODIUM LEVEL 135 MEQ/L (136-145)
[2018-03-05] MEDS: HEPARIN SOD (PORCINE) 5000 UNITS/ML VIAL SC ×3 (06:37→20:46)
[2018-03-05] MEDS ORDERED: SLF 3 ML SYR IV (07:00)
[2018-03-05] MEDS: CALCITRIOL 0.25 MCG CAP (S0169) PO ×2 (09:00→12:19)
[2018-03-05] MEDS: CALCIUM/VITAMIN D 500 MG TAB PO ×4 (09:00→20:45)
[2018-03-05] MEDS: SERTRALINE HCL 25 MG TABLET PO (09:38)
[2018-03-05] MEDS: DESVENLAFAXINE ER 50 MG TABLET (PRISTIQ) PO (09:38)
[2018-03-05] MEDS: CARVedilol 12.5 MG TAB PO ×2 (09:38→20:44)
[2018-03-05 10:17] LABS: IONIZED CALCIUM 4.3 MG/DL (4.5-5.3)
[2018-03-05 10:33] LABS: CALCIUM LEVEL 9.9 MG/DL (8.5-10.1)
[2018-03-05] MEDS: SLF 3 ML SYR IV ×2 (14:58→20:46)
[2018-03-05 16:32] LABS: CALCIUM LEVEL 8.7 MG/DL (8.5-10.1)
[2018-03-05] MEDS: PANTOPRAZOLE 40MG TAB (PROTONIX) PO (20:45)
[2018-03-05] MEDS: FOLIC ACID 1 MG TAB PO (20:45)
[2018-03-05] MEDS: GABAPENTIN 100 MG CAP PO (20:45)
[2018-03-06] MEDS: HEPARIN SOD (PORCINE) 5000 UNITS/ML VIAL SC ×3 (05:40→21:29)
[2018-03-06] MEDS: SLF 3 ML SYR IV ×3 (05:40→21:30)
[2018-03-06 05:47] LABS: HEMATOCRIT 28.3 % (36.0-47.0); HEMOGLOBIN 9.1 g/dl (12.0-15.5); MEAN CORPUSCULAR HEMOGLOBIN 31.7 pg (27.0-33.0); MEAN CORPUSCULAR HGB CONC 32.2 g/dl (32.0-36.5); MEAN CORPUSCULAR VOLUME 98.6 fl (80.0-96.0); PLATELET COUNT, AUTOMATED 201 10^3/uL (150-450); RED BLOOD COUNT 2.87 10^6/uL (4.00-5.40); RED CELL DISTRIBUTION WIDTH 14.8 % (11.5-14.5)
[2018-03-06 06:10] LABS: ANION GAP 12 MEQ/L (8-16); BLOOD UREA NITROGEN 40 MG/DL (7-18); CALCIUM LEVEL 8.1 MG/DL (8.5-10.1); CARBON DIOXIDE LEVEL 26 MEQ/L (21-32); CHLORIDE LEVEL 99 MEQ/L (98-107); GLOMERULAR FILTRATION RATE 3.6 (>58); GLUCOSE, FASTING 100 MG/DL (70-100); MAGNESIUM LEVEL 1.9 MG/DL (1.8-2.4); POTASSIUM SERUM 4.1 MEQ/L (3.5-5.1); SODIUM LEVEL 137 MEQ/L (136-145)
[2018-03-06 06:15] LABS: FERRITIN 254 NG/ML (8-252); IRON (FE) 55 UG/DL (50-170); PERCENT SATURATION 22.1 % (13.2-45.0); TOTAL IRON BINDING CAPACITY 249 UG/DL (250-450)
[2018-03-06] MEDS: CALCITRIOL 0.25 MCG CAP (S0169) PO (09:24)
[2018-03-06] MEDS: CARVedilol 12.5 MG TAB PO ×2 (09:25→21:29)
[2018-03-06] MEDS: CALCIUM/VITAMIN D 500 MG TAB PO ×3 (09:25→21:29)
[2018-03-06] MEDS: SERTRALINE HCL 25 MG TABLET PO (09:25)
[2018-03-06] MEDS ORDERED: CALCIUM CHLORIDE 10% 1 GM in D5W 100 ML IV (12:00)
[2018-03-06] MEDS: CALCIUM GLUCONATE 1,000 MG in D5W MINI-BAG PLUS 100 ML IV (21:28)
[2018-03-06] MEDS: GABAPENTIN 100 MG CAP PO (21:28)
[2018-03-06] MEDS: FOLIC ACID 1 MG TAB PO (21:29)
[2018-03-06] MEDS: PANTOPRAZOLE 40MG TAB (PROTONIX) PO (21:29)
[2018-03-07] MEDS ORDERED: CALCIUM GLUCONATE 1,000 MG in D5W MINI-BAG PLUS 100 ML IV
[2018-03-07] MEDS: HEPARIN SOD (PORCINE) 5000 UNITS/ML VIAL SC ×3 (05:27→21:52)
[2018-03-07] MEDS: SLF 3 ML SYR IV ×3 (05:27→21:57)
[2018-03-07 05:30] LABS: HEMATOCRIT 27.4 % (36.0-47.0); HEMOGLOBIN 8.9 g/dl (12.0-15.5); MEAN CORPUSCULAR HEMOGLOBIN 31.9 pg (27.0-33.0); MEAN CORPUSCULAR HGB CONC 32.5 g/dl (32.0-36.5); MEAN CORPUSCULAR VOLUME 98.2 fl (80.0-96.0); PLATELET COUNT, AUTOMATED 191 10^3/uL (150-450); RED BLOOD COUNT 2.79 10^6/uL (4.00-5.40); WHITE BLOOD COUNT 7.3 10^3/uL (4.0-10.0)
[2018-03-07 05:46] LABS: ANION GAP 14 MEQ/L (8-16); BLOOD UREA NITROGEN 41 MG/DL (7-18); CALCIUM LEVEL 7.7 MG/DL (8.5-10.1); CARBON DIOXIDE LEVEL 24 MEQ/L (21-32); CHLORIDE LEVEL 101 MEQ/L (98-107); GLOMERULAR FILTRATION RATE 3.5 (>58); GLUCOSE, FASTING 98 MG/DL (70-100); MAGNESIUM LEVEL 1.8 MG/DL (1.8-2.4); POTASSIUM SERUM 3.9 MEQ/L (3.5-5.1); SODIUM LEVEL 139 MEQ/L (136-145)
[2018-03-07] MEDS: CALCIUM GLUCONATE 1,000MG/10ML VIAL (100MG/ML) (J0610) IV ×5 (06:07→22:22)
[2018-03-07] MEDS: SERTRALINE HCL 25 MG TABLET PO (08:36)
[2018-03-07] MEDS: CALCITRIOL 0.25 MCG CAP (S0169) PO (08:36)
[2018-03-07] MEDS: CALCIUM/VITAMIN D 500 MG TAB PO ×3 (08:37→21:51)
[2018-03-07] MEDS: CARVedilol 12.5 MG TAB PO ×2 (08:37→21:51)
[2018-03-07] MEDS: DESVENLAFAXINE ER 50 MG TABLET (PRISTIQ) PO (08:38)
[2018-03-07] MEDS: CALCIUM GLUCONATE 1,000 MG in NS 100 ML IV (10:10)
[2018-03-07] MEDS: CALCIUM CHLORIDE 10% 1 GM in D5W 100 ML IV (11:14)
[2018-03-07] MEDS ORDERED: CALCIUM GLUCONATE 1,000MG/10ML VIAL (100MG/ML) (J0610) IV (18:00)
[2018-03-07] MEDS: GABAPENTIN 100 MG CAP PO (21:51)
[2018-03-07] MEDS: FOLIC ACID 1 MG TAB PO (21:51)
[2018-03-07] MEDS: PANTOPRAZOLE 40MG TAB (PROTONIX) PO (21:52)
[2018-03-07] MEDS ORDERED: IRON SUCROSE 100MG 5ML VIAL (J1756 PER 1MG) IV (23:00)
[2018-03-08] MEDS: IRON SUCROSE IV (00:48)
[2018-03-08] MEDS: NS IV (00:48)
[2018-03-08] MEDS: IRON SUCROSE 275 MG in NS 250 ML IV (02:46)
[2018-03-08 05:37] LABS: HEMATOCRIT 27.8 % (36.0-47.0); MEAN CORPUSCULAR HEMOGLOBIN 31.9 pg (27.0-33.0); MEAN CORPUSCULAR HGB CONC 32.4 g/dl (32.0-36.5); MEAN CORPUSCULAR VOLUME 98.6 fl (80.0-96.0); PLATELET COUNT, AUTOMATED 188 10^3/uL (150-450); RED BLOOD COUNT 2.82 10^6/uL (4.00-5.40); RED CELL DISTRIBUTION WIDTH 14.7 % (11.5-14.5); WHITE BLOOD COUNT 6.7 10^3/uL (4.0-10.0)
[2018-03-08 05:48] LABS: ANION GAP 11 MEQ/L (8-16); BLOOD UREA NITROGEN 38 MG/DL (7-18); CALCIUM LEVEL 9.4 MG/DL (8.5-10.1); CARBON DIOXIDE LEVEL 26 MEQ/L (21-32); CHLORIDE LEVEL 102 MEQ/L (98-107); GLOMERULAR FILTRATION RATE 3.5 (>58); GLUCOSE, FASTING 98 MG/DL (70-100); POTASSIUM SERUM 3.9 MEQ/L (3.5-5.1); SODIUM LEVEL 139 MEQ/L (136-145)
[2018-03-08] MEDS: SLF 3 ML SYR IV ×3 (06:00→22:00)
[2018-03-08] MEDS: CALCIUM GLUCONATE 1,000MG/10ML VIAL (100MG/ML) (J0610) IV (06:39)
[2018-03-08] MEDS: HEPARIN SOD (PORCINE) 5000 UNITS/ML VIAL SC ×3 (06:49→22:21)
[2018-03-08] MEDS: CALCITRIOL 0.25 MCG CAP (S0169) PO (12:18)
[2018-03-08] MEDS: SERTRALINE HCL 25 MG TABLET PO (12:18)
[2018-03-08] MEDS: CALCIUM/VITAMIN D 500 MG TAB PO ×3 (12:18→22:20)
[2018-03-08] MEDS: CARVedilol 12.5 MG TAB PO ×2 (12:19→20:58)
[2018-03-08] MEDS: SODIUM CHLORIDE 0.9% INJ 10 ML SYR IV (18:00)
[2018-03-08] MEDS: GABAPENTIN 100 MG CAP PO (20:58)
[2018-03-08] MEDS: FOLIC ACID 1 MG TAB PO (20:58)
[2018-03-08] MEDS: PANTOPRAZOLE 40MG TAB (PROTONIX) PO (20:59)
[2018-03-09 05:31] LABS: HEMATOCRIT 27.1 % (36.0-47.0); HEMOGLOBIN 8.9 g/dl (12.0-15.5); MEAN CORPUSCULAR HEMOGLOBIN 32.1 pg (27.0-33.0); MEAN CORPUSCULAR HGB CONC 32.8 g/dl (32.0-36.5); MEAN CORPUSCULAR VOLUME 97.8 fl (80.0-96.0); PLATELET COUNT, AUTOMATED 183 10^3/uL (150-450); RED BLOOD COUNT 2.77 10^6/uL (4.00-5.40); RED CELL DISTRIBUTION WIDTH 14.6 % (11.5-14.5); WHITE BLOOD COUNT 7.1 10^3/uL (4.0-10.0)
[2018-03-09] MEDS: HEPARIN SOD (PORCINE) 5000 UNITS/ML VIAL SC ×3 (05:51→21:13)
[2018-03-09] MEDS: SODIUM CHLORIDE 0.9% INJ 10 ML SYR IV ×2 (05:52→17:20)
[2018-03-09] MEDS: SLF 3 ML SYR IV ×3 (05:52→22:00)
[2018-03-09 06:49] LABS: ANION GAP 13 MEQ/L (8-16); BLOOD UREA NITROGEN 42 MG/DL (7-18); CALCIUM LEVEL 8.1 MG/DL (8.5-10.1); CARBON DIOXIDE LEVEL 26 MEQ/L (21-32); CHLORIDE LEVEL 102 MEQ/L (98-107); GLOMERULAR FILTRATION RATE 3.5 (>58); GLUCOSE, FASTING 95 MG/DL (70-100); POTASSIUM SERUM 3.9 MEQ/L (3.5-5.1); SODIUM LEVEL 141 MEQ/L (136-145)
[2018-03-09] MEDS: DESVENLAFAXINE ER 50 MG TABLET (PRISTIQ) PO (09:58)
[2018-03-09] MEDS: CALCIUM/VITAMIN D 500 MG TAB PO ×3 (09:58→21:12)
[2018-03-09] MEDS: CALCITRIOL 0.25 MCG CAP (S0169) PO (09:58)
[2018-03-09] MEDS: FERROUS GLUCONATE 324 MG TAB PO (10:00)
[2018-03-09] MEDS: CARVedilol 12.5 MG TAB PO ×2 (10:00→21:13)
[2018-03-09] MEDS: SERTRALINE HCL 25 MG TABLET PO (10:00)
[2018-03-09] MEDS: DARBEPOETIN 100 MCG/0.5 ML *NON-DIALYSIS* SYRINGE (J0881) SQ (14:10)
[2018-03-09] MEDS: GABAPENTIN 100 MG CAP PO (21:12)
[2018-03-09] MEDS: FOLIC ACID 1 MG TAB PO (21:12)
[2018-03-09] MEDS: PANTOPRAZOLE 40MG TAB (PROTONIX) PO (21:13)
[2018-03-10 05:00] LABS: HEMATOCRIT 26.8 % (36.0-47.0); HEMOGLOBIN 8.7 g/dl (12.0-15.5); MEAN CORPUSCULAR HEMOGLOBIN 31.8 pg (27.0-33.0); MEAN CORPUSCULAR HGB CONC 32.5 g/dl (32.0-36.5); MEAN CORPUSCULAR VOLUME 97.8 fl (80.0-96.0); PLATELET COUNT, AUTOMATED 177 10^3/uL (150-450); RED BLOOD COUNT 2.74 10^6/uL (4.00-5.40); RED CELL DISTRIBUTION WIDTH 14.6 % (11.5-14.5); WHITE BLOOD COUNT 7.1 10^3/uL (4.0-10.0)
[2018-03-10 05:33] LABS: ANION GAP 12 MEQ/L (8-16); BLOOD UREA NITROGEN 44 MG/DL (7-18); CALCIUM LEVEL 8.3 MG/DL (8.5-10.1); CARBON DIOXIDE LEVEL 27 MEQ/L (21-32); CHLORIDE LEVEL 101 MEQ/L (98-107); GLOMERULAR FILTRATION RATE 3.6 (>58); GLUCOSE, FASTING 97 MG/DL (70-100); POTASSIUM SERUM 3.7 MEQ/L (3.5-5.1); SODIUM LEVEL 140 MEQ/L (136-145)
[2018-03-10] MEDS: SLF 3 ML SYR IV ×3 (06:00→21:15)
[2018-03-10] MEDS: HEPARIN SOD (PORCINE) 5000 UNITS/ML VIAL SC ×3 (06:28→21:15)
[2018-03-10] MEDS: SODIUM CHLORIDE 0.9% INJ 10 ML SYR IV ×2 (06:29→17:24)
[2018-03-10] MEDS: CALCITRIOL 0.25 MCG CAP (S0169) PO (08:08)
[2018-03-10] MEDS: CARVedilol 12.5 MG TAB PO ×2 (08:08→21:14)
[2018-03-10] MEDS: SERTRALINE HCL 25 MG TABLET PO (08:08)
[2018-03-10] MEDS: FERROUS GLUCONATE 324 MG TAB PO (08:08)
[2018-03-10] MEDS: CALCIUM/VITAMIN D 500 MG TAB PO ×3 (08:08→21:14)
[2018-03-10] MEDS: PANTOPRAZOLE 40MG TAB (PROTONIX) PO (21:14)
[2018-03-10] MEDS: FOLIC ACID 1 MG TAB PO (21:14)
[2018-03-10] MEDS: GABAPENTIN 100 MG CAP PO (21:14)
[2018-03-11] MEDS: SLF 3 ML SYR IV ×3 (06:00→22:00)
[2018-03-11] MEDS: SODIUM CHLORIDE 0.9% INJ 10 ML SYR IV ×3 (06:27→17:32)
[2018-03-11] MEDS: HEPARIN SOD (PORCINE) 5000 UNITS/ML VIAL SC ×3 (06:27→22:00)
[2018-03-11 06:46] LABS: HEMATOCRIT 27.1 % (36.0-47.0); HEMOGLOBIN 8.8 g/dl (12.0-15.5); MEAN CORPUSCULAR HEMOGLOBIN 31.9 pg (27.0-33.0); MEAN CORPUSCULAR HGB CONC 32.5 g/dl (32.0-36.5); MEAN CORPUSCULAR VOLUME 98.2 fl (80.0-96.0); PLATELET COUNT, AUTOMATED 178 10^3/uL (150-450); RED BLOOD COUNT 2.76 10^6/uL (4.00-5.40); RED CELL DISTRIBUTION WIDTH 14.6 % (11.5-14.5); WHITE BLOOD COUNT 7.3 10^3/uL (4.0-10.0)
[2018-03-11 07:09] LABS: ANION GAP 11 MEQ/L (8-16); BLOOD UREA NITROGEN 49 MG/DL (7-18); CALCIUM LEVEL 8.2 MG/DL (8.5-10.1); CARBON DIOXIDE LEVEL 26 MEQ/L (21-32); CHLORIDE LEVEL 101 MEQ/L (98-107); GLOMERULAR FILTRATION RATE 3.4 (>58); GLUCOSE, FASTING 100 MG/DL (70-100); MAGNESIUM LEVEL 1.8 MG/DL (1.8-2.4); POTASSIUM SERUM 3.6 MEQ/L (3.5-5.1); SODIUM LEVEL 138 MEQ/L (136-145)
[2018-03-11 07:28] LABS: RBC BODY FLUID < 2 10^3/uL (<2)
[2018-03-11 07:29] LABS: APPEARANCE, BODY FLUID CLEAR (CLEAR); BF DIFF IF INDICATED? NO (NO); PERITONEAL DIALYSATE FL COLOR COLORLESS (COLORLESS); SOURCE, BODY FLUID PERITONEAL DIALYSATE; WBC BODY FLUID 5 /uL (0-10)
[2018-03-11] MEDS: CALCIUM/VITAMIN D 500 MG TAB PO ×3 (08:01→20:32)
[2018-03-11] MEDS: CALCITRIOL 0.25 MCG CAP (S0169) PO (08:02)
[2018-03-11] MEDS: DESVENLAFAXINE ER 50 MG TABLET (PRISTIQ) PO (08:02)
[2018-03-11] MEDS: SERTRALINE HCL 25 MG TABLET PO (08:02)
[2018-03-11] MEDS: CARVedilol 12.5 MG TAB PO ×2 (08:02→20:32)
[2018-03-11] MEDS: FERROUS GLUCONATE 324 MG TAB PO (08:02)
[2018-03-11] MEDS ORDERED: CALCIUM CHLORIDE 10% 1 GM in D5W 100 ML IV (10:00)
[2018-03-11] MEDS: CALCIUM CHLORIDE 10% 1 GM in D5W 100 ML IV (12:23)
[2018-03-11 19:41] LABS: KETONE, URINE AUTO RFX NEGATIVE (NEGATIVE); NITRITE, URINE AUTO RFX NEGATIVE (NEGATIVE); RBC, URINE AUTO RFX 2 /HPF (0-3); SPECIFIC GRAVITY UR AUTO RFX 1.005 (1.002-1.035); SQUAM EPITHELIAL CELL UR AURFX 1 /HPF (0-6); WBC, URINE AUTO RFX 4 /HPF (0-3)
[2018-03-11 19:53] LABS: LEUKOCYTE ESTERASE UR AUTO RFX TRACE (NEGATIVE)
[2018-03-11] MEDS: FOLIC ACID 1 MG TAB PO (20:32)
[2018-03-11] MEDS: PANTOPRAZOLE 40MG TAB (PROTONIX) PO (20:32)
[2018-03-11] MEDS: GABAPENTIN 100 MG CAP PO (20:32)
[2018-03-12] MEDS: SLF 3 ML SYR IV (06:00)
[2018-03-12] MEDS: HEPARIN SOD (PORCINE) 5000 UNITS/ML VIAL SC (06:10)
[2018-03-12] MEDS: SODIUM CHLORIDE 0.9% INJ 10 ML SYR IV (06:10)
[2018-03-12 06:32] LABS: BASO % 0.5 % (0.0-1.0); EOS # 0.6 10^3/uL (0.0-0.50); EOS % 7.7 % (0.0-3.0); HEMATOCRIT 26.7 % (36.0-47.0); HEMOGLOBIN 8.8 g/dl (12.0-15.5); IMMATURE GRANULOCYTE % 0.3 % (0-3.0); LYMPH # 2.2 10^3/uL (1.5-4.5); LYMPH % 27.9 % (24.0-44.0); MEAN CORPUSCULAR HEMOGLOBIN 32.2 pg (27.0-33.0); MEAN CORPUSCULAR VOLUME 97.8 fl (80.0-96.0); MONO # 0.4 10^3/uL (0.0-0.8); MONO % 5.1 % (0.0-5.0); NEUTROPHILS # 4.6 10^3/uL (1.8-7.7); NEUTROPHILS % 58.5 % (36.0-66.0); PLATELET COUNT, AUTOMATED 181 10^3/uL (150-450); RED BLOOD COUNT 2.73 10^6/uL (4.00-5.40); RED CELL DISTRIBUTION WIDTH 14.4 % (11.5-14.5); WHITE BLOOD COUNT 7.8 10^3/uL (4.0-10.0)
[2018-03-12 07:14] LABS: ANION GAP 15 MEQ/L (8-16); BLOOD UREA NITROGEN 47 MG/DL (7-18); CALCIUM LEVEL 8.4 MG/DL (8.5-10.1); CARBON DIOXIDE LEVEL 25 MEQ/L (21-32); CHLORIDE LEVEL 101 MEQ/L (98-107); GLOMERULAR FILTRATION RATE 3.4 (>58); GLUCOSE, FASTING 94 MG/DL (70-100); MAGNESIUM LEVEL 1.9 MG/DL (1.8-2.4); POTASSIUM SERUM 3.7 MEQ/L (3.5-5.1); SODIUM LEVEL 141 MEQ/L (136-145)
[2018-03-12] MEDS: SERTRALINE HCL 25 MG TABLET PO (09:10)
[2018-03-12] MEDS: CARVedilol 12.5 MG TAB PO (09:11)
[2018-03-12] MEDS: CALCIUM/VITAMIN D 500 MG TAB PO (09:12)
[2018-03-12] MEDS: CALCITRIOL 0.25 MCG CAP (S0169) PO (09:12)
[2018-03-12] MEDS: FERROUS GLUCONATE 324 MG TAB PO (09:12)
[2018-03-12] MEDS: CALCIUM CHLORIDE 10% 1 GM in D5W 100 ML IV (11:11)
== END 2018-03-12 14:38 | disposition home health service (06) | DRG 640 ==
LOC: M ED 16:04 → M ED INP 20:21 → M PCU 23:25
PROC: 3E1M39Z Irrigation of Peritoneal Cavity using Dialysate, Percutaneous Approach (ICD-10-PCS; 2018-03-02)
PROC: 02HV33Z Insertion of Infusion Device into Superior Vena Cava, Percutaneous Approach (ICD-10-PCS; principal; 2018-03-08)
DX: E83.81 Hungry bone syndrome (principal); N18.6 End stage renal disease; I12.0 Hypertensive chronic kidney disease with stage 5 chronic kidney disease or end stage renal disease; Q61.3 Polycystic kidney, unspecified; K21.9 Gastro-esophageal reflux disease without esophagitis; R42 Dizziness and giddiness; E89.2 Postprocedural hypoparathyroidism; Z88.8 Allergy status to other drugs, medicaments and biological substances; D63.1 Anemia in chronic kidney disease; Z99.2 Dependence on renal dialysis; Z79.899 Other long term (current) drug therapy

== ENCOUNTER 2018-03-15 12:47 | Emergency (ER) | payer MEDICARE, BC ==
[2018-03-15 13:55] LABS: BASO % 0.3 % (0.0-1.0); EOS # 0.6 10^3/uL (0.0-0.50); HEMATOCRIT 28.4 % (36.0-47.0); HEMOGLOBIN 9.5 g/dl (12.0-15.5); IMMATURE GRANULOCYTE % 0.3 % (0-3.0); LYMPH # 1.8 10^3/uL (1.5-4.5); LYMPH % 19.2 % (24.0-44.0); MEAN CORPUSCULAR HEMOGLOBIN 32.9 pg (27.0-33.0); MEAN CORPUSCULAR HGB CONC 33.5 g/dl (32.0-36.5); MEAN CORPUSCULAR VOLUME 98.3 fl (80.0-96.0); MONO # 0.5 10^3/uL (0.0-0.8); MONO % 5.2 % (0.0-5.0); NEUTROPHILS # 6.3 10^3/uL (1.8-7.7); PLATELET COUNT, AUTOMATED 203 10^3/uL (150-450); RED BLOOD COUNT 2.89 10^6/uL (4.00-5.40); RED CELL DISTRIBUTION WIDTH 14.4 % (11.5-14.5); WHITE BLOOD COUNT 9.1 10^3/uL (4.0-10.0)
[2018-03-15 14:27] LABS: ALBUMIN 3.3 GM/DL (3.2-5.2); ALBUMIN/GLOBULIN RATIO 0.89 (1.00-1.93); ALKALINE PHOSPHATASE 97 U/L (45-117); ALT/SGPT 26 U/L (12-78); ANION GAP 12 MEQ/L (8-16); AST/SGOT 10 U/L (7-37); BILIRUBIN,DIRECT 0.1 MG/DL (0.0-0.2); BILIRUBIN,TOTAL 0.3 MG/DL (0.2-1.0); BLOOD UREA NITROGEN 41 MG/DL (7-18); CALCIUM LEVEL 8.5 MG/DL (8.5-10.1); CARBON DIOXIDE LEVEL 25 MEQ/L (21-32); CHLORIDE LEVEL 104 MEQ/L (98-107); GLOMERULAR FILTRATION RATE 3.6 (>58); GLUCOSE, FASTING 84 MG/DL (70-100); MAGNESIUM LEVEL 2.3 MG/DL (1.8-2.4); PHOSPHORUS LEVEL 3.5 MG/DL (2.5-4.9); POTASSIUM SERUM 3.7 MEQ/L (3.5-5.1); SODIUM LEVEL 141 MEQ/L (136-145)
[2018-03-15 15:20] LABS: IONIZED CALCIUM 4.4 MG/DL (4.5-5.3)
[2018-03-15] MEDS: CALCIUM GLUCONATE 1,000 MG in D5W MINI-BAG PLUS 100 ML IV (16:00)
[2018-03-15] MEDS ORDERED: SODIUM CHLORIDE 0.9% INJ 10 ML SYR IV (16:45)
== END 2018-03-15 17:49 | disposition home or self-care (01) ==
LOC: M ED 12:47
DX: R20.2 Paresthesia of skin (principal); E83.51 Hypocalcemia; I10 Essential (primary) hypertension; K21.9 Gastro-esophageal reflux disease without esophagitis; E21.3 Hyperparathyroidism, unspecified; Q61.2 Polycystic kidney, adult type; N18.6 End stage renal disease; Z99.2 Dependence on renal dialysis; Z79.899 Other long term (current) drug therapy; Z88.5 Allergy status to narcotic agent; Z88.8 Allergy status to other drugs, medicaments and biological substances
CPT/HCPCS: J0610

== ENCOUNTER → 2018-03-21 | Outpatient (REF) | payer MEDICARE, BC ==
[2018-03-21 12:36] LABS: ALBUMIN 3.2 GM/DL (3.2-5.2); ALBUMIN/GLOBULIN RATIO 1.03 (1.00-1.93); ALKALINE PHOSPHATASE 75 U/L (45-117); ALT/SGPT 19 U/L (12-78); ANION GAP 12 MEQ/L (8-16); AST/SGOT 6 U/L (7-37); BILIRUBIN,TOTAL 0.3 MG/DL (0.2-1.0); BLOOD UREA NITROGEN 43 MG/DL (7-18); CALCIUM LEVEL 9.8 MG/DL (8.5-10.1); CARBON DIOXIDE LEVEL 23 MEQ/L (21-32); CHLORIDE LEVEL 106 MEQ/L (98-107); GLOMERULAR FILTRATION RATE 3.6 (>58); GLUCOSE, FASTING 131 MG/DL (70-100); POTASSIUM SERUM 3.7 MEQ/L (3.5-5.1); SODIUM LEVEL 141 MEQ/L (136-145); TOTAL PROTEIN 6.3 GM/DL (6.4-8.2)
== END ==
LOC: M LAB REF 11:35
DX: E83.51 Hypocalcemia (principal)
CPT/HCPCS: 80053

== ENCOUNTER → 2018-03-25 | Outpatient (REF) | payer MEDICARE, BC ==
[2018-03-25 14:23] LABS: ALBUMIN 3.2 GM/DL (3.2-5.2); ALBUMIN/GLOBULIN RATIO 0.94 (1.00-1.93); ALKALINE PHOSPHATASE 73 U/L (45-117); ALT/SGPT 19 U/L (12-78); ANION GAP 15 MEQ/L (8-16); AST/SGOT 10 U/L (7-37); BILIRUBIN,TOTAL 0.3 MG/DL (0.2-1.0); BLOOD UREA NITROGEN 42 MG/DL (7-18); CALCIUM LEVEL 9.2 MG/DL (8.5-10.1); CARBON DIOXIDE LEVEL 23 MEQ/L (21-32); CHLORIDE LEVEL 106 MEQ/L (98-107); GLOMERULAR FILTRATION RATE 3.6 (>58); GLUCOSE, FASTING 84 MG/DL (70-100); POTASSIUM SERUM 3.4 MEQ/L (3.5-5.1); SODIUM LEVEL 144 MEQ/L (136-145); TOTAL PROTEIN 6.6 GM/DL (6.4-8.2)
== END ==
LOC: M LAB REF 13:51
DX: E83.51 Hypocalcemia (principal)
CPT/HCPCS: 80053

== ENCOUNTER 2018-10-11 14:58 | Outpatient (CLI) | payer MEDICARE, BC ==
[~2018-10-11] VITALS: Ht 157.5 cm; Wt 106.7 kg
[~2018-10-11 14:58] MED LIST changes: +CALCD50TA PO; +FOLI1TAB11 PO; -FOLI1TAB4 PO; +GABA-1171 PO; -GABA-279 PO; +KLOR10TA76 PO; +KLOR20TA42 PO; -LIDOCAINE 2% INJ 100 MG/5 ML SDV (FOR ANES.) As Ordered ONE; +MIRC200I INJ; -NS 1,000 ML IV ONE; -PANT40TA2 PO; +PANT40TA3 PO; -POTA20TA PO; -PROPOFOL 500 MG/50 ML VIAL As Ordered ONE; +TUMS500C PO; +[UNRECOGNIZED DRUG - CODE] XX
[2018-10-11 15:05] VITALS: BP 131/58
[2018-10-11 16:00] VITALS: BP 118/63
[2018-10-11] MEDS ORDERED: FILTER 1.2 MICRON (ADULT TPN/MANNITOL/REMICADE) XX ONE (16:00)
[2018-10-11] MEDS ORDERED: NS IV ONE (16:00)
[2018-10-11] MEDS ORDERED: BELATACEPT IV ONE (16:00)
[2018-10-11 16:30] VITALS: BP 114/69
== END 2018-10-11 16:30 | disposition home or self-care (01) ==
LOC: M INFU 14:58
PROVIDERS: ATTEND Internal Medicine Nephrology
DX: Z94.0 Kidney transplant status (principal)
CPT/HCPCS: 96365; J0485

== ENCOUNTER 2018-10-25 15:38 | Outpatient (CLI) | payer BC, MEDICARE ==
[~2018-10-25] VITALS: Ht 157.5 cm; Wt 91.0 kg
[2018-10-25 15:45] VITALS: BP 133/68
[2018-10-25 16:21] LABS: BASO % 0.2 % (0.0-1.0); EOS # 0.1 10^3/uL (0.0-0.50); EOS % 0.6 % (0.0-3.0); HEMATOCRIT 32.2 % (36.0-47.0); HEMOGLOBIN 10.5 g/dl (12.0-15.5); LYMPH % 9.2 % (24.0-44.0); MEAN CORPUSCULAR HEMOGLOBIN 28.1 pg (27.0-33.0); MEAN CORPUSCULAR HGB CONC 32.6 g/dl (32.0-36.5); MEAN CORPUSCULAR VOLUME 86.1 fl (80.0-96.0); MONO # 0.5 10^3/uL (0.0-0.8); MONO % 4.4 % (0.0-5.0); NEUTROPHILS # 9.4 10^3/uL (1.8-7.7); NEUTROPHILS % 85.2 % (36.0-66.0); PLATELET COUNT, AUTOMATED 257 10^3/uL (150-450); RED BLOOD COUNT 3.74 10^6/uL (4.00-5.40)
[2018-10-25] MEDS ORDERED: NS IV ONE (16:30)
[2018-10-25] MEDS ORDERED: BELATACEPT IV ONE (16:30)
[2018-10-25] MEDS ORDERED: FILTER 1.2 MICRON (ADULT TPN/MANNITOL/REMICADE) XX ONE (16:30)
[2018-10-25 16:47] LABS: ALBUMIN 3.8 GM/DL (3.2-5.2); BILIRUBIN,DIRECT 0.1 MG/DL (0.0-0.2); BILIRUBIN,TOTAL 0.3 MG/DL (0.2-1.0); CALCIUM LEVEL 7.6 MG/DL (8.5-10.1); CHOLESTEROL RISK RATIO 3.372 (<5); GLOMERULAR FILTRATION RATE 17.6 (>51); MAGNESIUM LEVEL 2.1 MG/DL (1.8-2.4); PHOSPHORUS LEVEL 3.8 MG/DL (2.5-4.9); POTASSIUM SERUM 3.7 MEQ/L (3.5-5.1)
[2018-10-25 17:00] VITALS: BP 127/58
[2018-10-25 17:20] VITALS: BP 132/75
== END 2018-10-25 17:20 | disposition home or self-care (01) ==
LOC: M INFU 15:38
PROVIDERS: ATTEND Internal Medicine Nephrology
DX: Z94.0 Kidney transplant status (principal); N18.5 Chronic kidney disease, stage 5; D84.9 Immunodeficiency, unspecified; Z79.899 Other long term (current) drug therapy
CPT/HCPCS: 80061; 80069; 80076; 83735; 85025; 96365; J0485

== ENCOUNTER 2018-11-08 15:46 | Outpatient (CLI) | payer BC, MEDICARE ==
[~2018-11-08] VITALS: Ht 157.5 cm; Wt 91.0 kg
[2018-11-08 15:50] VITALS: BP 128/63
[2018-11-08] MEDS ORDERED: FILTER 1.2 MICRON (ADULT TPN/MANNITOL/REMICADE) XX ONE (16:15)
[2018-11-08] MEDS ORDERED: NS IV ONE (16:15)
[2018-11-08] MEDS ORDERED: BELATACEPT IV ONE (16:15)
[2018-11-08 17:23] VITALS: BP 111/56
[2018-11-08 17:42] VITALS: BP 118/57
== END 2018-11-08 17:40 | disposition home or self-care (01) ==
LOC: M INFU 15:46 → M LAB 15:46 → M INFU 17:40
PROVIDERS: ATTEND Internal Medicine Nephrology
DX: N18.5 Chronic kidney disease, stage 5 (principal); D84.9 Immunodeficiency, unspecified; Z94.0 Kidney transplant status; Z79.899 Other long term (current) drug therapy
CPT/HCPCS: 96365; J0485

== ENCOUNTER → 2018-11-08 | Outpatient (CLI) | payer BC, MEDICARE ==
[2018-11-08 16:49] LABS: BASO % 0.3 % (0.0-1.0); EOS % 0.5 % (0.0-3.0); HEMATOCRIT 34.4 % (36.0-47.0); HEMOGLOBIN 11.2 g/dl (12.0-15.5); LYMPH # 1.2 10^3/uL (1.5-4.5); MEAN CORPUSCULAR HEMOGLOBIN 28.3 pg (27.0-33.0); MEAN CORPUSCULAR HGB CONC 32.6 g/dl (32.0-36.5); MEAN CORPUSCULAR VOLUME 86.9 fl (80.0-96.0); MONO # 0.4 10^3/uL (0.0-0.8); MONO % 4.6 % (0.0-5.0); NEUTROPHILS % 80.3 % (36.0-66.0); PLATELET COUNT, AUTOMATED 308 10^3/uL (150-450); RED BLOOD COUNT 3.96 10^6/uL (4.00-5.40); WHITE BLOOD COUNT 8.8 10^3/uL (4.0-10.0)
[2018-11-08 17:14] LABS: ALBUMIN 3.9 GM/DL (3.2-5.2); CALCIUM LEVEL 7.9 MG/DL (8.5-10.1); CREATININE FOR GFR 2.31 MG/DL (0.55-1.30); GLOMERULAR FILTRATION RATE 23.8 (>51); MAGNESIUM LEVEL 2.3 MG/DL (1.8-2.4); PHOSPHORUS LEVEL 3.5 MG/DL (2.5-4.9); POTASSIUM SERUM 3.7 MEQ/L (3.5-5.1)
[2018-11-08 17:28] LABS: TOTAL PROTEIN,RANDOM URINE 67.1 MG/DL (0.0-12.0)
[2018-11-08 18:37] LABS: APPEARANCE, URINE HAZY (CLEAR); BACTERIA, URINE AUTO NEGATIVE (NEGATIVE); BILIRUBIN, URINE AUTO NEGATIVE (NEGATIVE); BLOOD, URINE BLOOD 2+ (NEGATIVE); COLOR, URINE YELLOW (YELLOW); GLUCOSE, URINE (UA) AUTO NEGATIVE (NEGATIVE); KETONE, URINE AUTO NEGATIVE (NEGATIVE); LEUKOCYTE ESTERASE, URINE AUTO NEGATIVE (NEGATIVE); NITRITE, URINE AUTO NEGATIVE (NEGATIVE); PROTEIN, URINE AUTO 1+ mg/dL (NEGATIVE); RBC, URINE AUTO 4 /HPF (0-3); SPECIFIC GRAVITY URINE AUTO 1.013 (1.002-1.035); SQUAMOUS EPITHELIAL CELL UR AU 6 /HPF (0-6); UROBILINOGEN, URINE AUTO 0.2 mg/dL (0.0-2.0); WBC, URINE AUTO 3 /HPF (0-3)
== END ==
LOC: M LAB 16:11
PROVIDERS: ATTEND Internal Medicine Nephrology
DX: N18.5 Chronic kidney disease, stage 5 (principal); D84.9 Immunodeficiency, unspecified; Z94.0 Kidney transplant status; Z79.899 Other long term (current) drug therapy

== ENCOUNTER → 2018-11-21 | Outpatient (REF) | payer MEDICARE, BC | LOC: M LAB REF 12:50 | PROVIDERS: ATTEND Internal Medicine Nephrology | DX: N39.0 Urinary tract infection, site not specified (principal) ==

== ENCOUNTER 2018-12-06 13:06 | Outpatient (CLI) | payer MEDICARE, BC ==
[~2018-12-06] VITALS: Ht 157.5 cm; Wt 91.0 kg
[2018-12-06 13:15] VITALS: BP 122/61
[2018-12-06] MEDS ORDERED: FILTER 1.2 MICRON (ADULT TPN/MANNITOL/REMICADE) XX ONE (14:00)
[2018-12-06] MEDS ORDERED: NS IV ONE (14:00)
[2018-12-06] MEDS ORDERED: BELATACEPT IV ONE (14:00)
[2018-12-06 14:49] VITALS: BP 106/56
== END 2018-12-06 14:50 | disposition home or self-care (01) ==
LOC: M INFU 13:06
PROVIDERS: ATTEND Internal Medicine Nephrology
DX: N18.5 Chronic kidney disease, stage 5 (principal); Z94.0 Kidney transplant status
CPT/HCPCS: 96365; J0485

== ENCOUNTER 2019-02-06 13:02 | Outpatient (CLI) | payer MEDICARE, BC ==
[~2019-02-06] VITALS: Ht 157.5 cm; Wt 91.0 kg
[~2019-02-06 13:02] MED LIST changes: -/PANT40TA PO; -CINA30TA PO; +CINA30TA4 PO; +PROT1TAB2 PO
[2019-02-06] MEDS ORDERED: BELATACEPT IV ONE (13:15)
[2019-02-06] MEDS ORDERED: NS IV ONE (13:15)
[2019-02-06] MEDS ORDERED: FILTER 1.2 MICRON (ADULT TPN/MANNITOL/REMICADE) XX ONE (13:15)
[2019-02-06 13:22] VITALS: BP 124/61
[2019-02-06 14:22] VITALS: BP 120/58
[2019-02-06 14:50] VITALS: BP 132/61
== END 2019-02-06 14:50 | disposition home or self-care (01) ==
LOC: M INFU 13:02
PROVIDERS: ATTEND Internal Medicine Nephrology
DX: Z94.0 Kidney transplant status (principal); Z79.899 Other long term (current) drug therapy
CPT/HCPCS: 96365; J0485

== ENCOUNTER 2019-03-13 13:09 | Outpatient (CLI) | payer MEDICARE, BC ==
[~2019-03-13] VITALS: Ht 157.5 cm; Wt 91.0 kg
[2019-03-13] MEDS ORDERED: BELATACEPT IV ONE (13:30)
[2019-03-13] MEDS ORDERED: NS IV ONE (13:30)
[2019-03-13] MEDS ORDERED: FILTER 1.2 MICRON (ADULT TPN/MANNITOL/REMICADE) XX ONE (13:30)
[2019-03-13 13:56] VITALS: BP 113/56
[2019-03-13 14:45] VITALS: BP 116/64
== END 2019-03-13 14:45 | disposition home or self-care (01) ==
LOC: M INFU 13:09
PROVIDERS: ATTEND Internal Medicine Nephrology
DX: Z94.0 Kidney transplant status (principal)
CPT/HCPCS: 96365; J0485

== ENCOUNTER 2019-04-10 13:40 | Outpatient (CLI) | payer MEDICARE, BC ==
[~2019-04-10] VITALS: Ht 157.5 cm; Wt 91.0 kg
[2019-04-10 14:19] VITALS: BP 138/59
[2019-04-10] MEDS: NS IV ONE (14:31)
[2019-04-10] MEDS: FILTER 1.2 MICRON (ADULT TPN/MANNITOL/REMICADE) XX ONE (14:31)
[2019-04-10] MEDS: BELATACEPT IV ONE (14:31)
[2019-04-10 15:11] VITALS: BP 112/58
== END 2019-04-10 15:15 | disposition home or self-care (01) ==
LOC: M INFU 13:40
PROVIDERS: ATTEND Internal Medicine Nephrology
DX: Z94.0 Kidney transplant status (principal)
CPT/HCPCS: 96365; J0485

== ENCOUNTER 2019-05-13 15:29 | Outpatient (CLI) | payer MEDICARE, BC ==
[~2019-05-13] VITALS: Ht 157.5 cm; Wt 91.0 kg
[2019-05-13 15:30] VITALS: BP 133/66
[2019-05-13] MEDS: BELATACEPT IV ONE (16:11)
[2019-05-13] MEDS: NS IV ONE (16:11)
[2019-05-13] MEDS: FILTER 1.2 MICRON (ADULT TPN/MANNITOL/REMICADE) XX ONE (16:11)
[2019-05-13 16:47] VITALS: BP 128/73
== END 2019-05-13 16:50 | disposition home or self-care (01) ==
LOC: M INFU 15:29
PROVIDERS: ATTEND Internal Medicine Nephrology
DX: Z94.0 Kidney transplant status (principal)
CPT/HCPCS: 96365; J0485

== ENCOUNTER 2019-06-17 15:05 | Outpatient (CLI) | payer MEDICARE, BC ==
[~2019-06-17] VITALS: Ht 157.5 cm; Wt 91.0 kg
[2019-06-17 15:10] VITALS: BP 117/58
[2019-06-17] MEDS ORDERED: FILTER 1.2 MICRON (ADULT TPN/MANNITOL/REMICADE) XX ONE (16:00)
[2019-06-17] MEDS ORDERED: BELATACEPT IV ONE (16:00)
[2019-06-17] MEDS ORDERED: NS IV ONE (16:00)
[2019-06-17 16:42] VITALS: BP 128/68
== END 2019-06-17 16:42 | disposition home or self-care (01) ==
LOC: M INFU 15:05
PROVIDERS: ATTEND Internal Medicine Nephrology
DX: Z94.0 Kidney transplant status (principal); Z98.890 Other specified postprocedural states; Z79.899 Other long term (current) drug therapy
CPT/HCPCS: 96365; J0485

== ENCOUNTER 2019-07-22 14:49 | Outpatient (CLI) | payer MEDICARE, BC ==
[~2019-07-22] VITALS: Ht 157.5 cm; Wt 91.0 kg
[2019-07-22 14:50] VITALS: BP 124/59
[2019-07-22] MEDS ORDERED: FILTER 1.2 MICRON (ADULT TPN/MANNITOL/REMICADE) XX ONE (15:15)
[2019-07-22] MEDS ORDERED: NS IV ONE (16:00)
[2019-07-22] MEDS ORDERED: BELATACEPT IV ONE (16:00)
[2019-07-22 16:45] VITALS: BP 134/81
== END 2019-07-22 16:45 | disposition home or self-care (01) ==
LOC: M INFU 14:49
PROVIDERS: ATTEND Internal Medicine Nephrology
DX: Z94.0 Kidney transplant status (principal)
CPT/HCPCS: 96365; J0485

== ENCOUNTER → 2019-08-13 | Outpatient (REF) | payer MEDICARE, BC | LOC: M LAB LCGH 12:47 | PROVIDERS: ATTEND Obstetrics & Gynecology | DX: Z12.4 Encounter for screening for malignant neoplasm of cervix (principal); Z94.0 Kidney transplant status | CPT/HCPCS: 87624; G0123 ==

== ENCOUNTER 2019-08-26 15:27 | Outpatient (CLI) | payer MEDICARE, BC ==
[~2019-08-26] VITALS: Ht 157.5 cm; Wt 91.0 kg
[2019-08-26 15:40] VITALS: BP 112/62
[2019-08-26] MEDS ORDERED: NS IV ONE ×2 (15:45→16:00)
[2019-08-26] MEDS ORDERED: ABATACEPT IV ONE (15:45)
[2019-08-26] MEDS ORDERED: FILTER 1.2 MICRON (ADULT TPN/MANNITOL/REMICADE) XX ONE ×2 (15:45→16:00)
[2019-08-26] MEDS ORDERED: BELATACEPT IV ONE (16:00)
[2019-08-26 16:55] VITALS: BP 128/67
[2019-08-26 17:15] VITALS: BP 133/65
== END 2019-08-26 17:15 | disposition home or self-care (01) ==
LOC: M INFU 15:27
PROVIDERS: ATTEND Internal Medicine Nephrology
DX: Z94.0 Kidney transplant status (principal)
CPT/HCPCS: 96365; J0485

== ENCOUNTER 2019-09-30 15:35 | Outpatient (CLI) | payer MEDICARE, BC ==
[~2019-09-30] VITALS: Ht 157.5 cm; Wt 91.0 kg
[2019-09-30 15:45] VITALS: BP 128/71
[2019-09-30] MEDS ORDERED: NS IV ONE (16:30)
[2019-09-30] MEDS ORDERED: BELATACEPT IV ONE (16:30)
[2019-09-30 16:55] VITALS: BP 126/74
== END 2019-09-30 16:55 | disposition home or self-care (01) ==
LOC: M INFU 15:35
PROVIDERS: ATTEND Internal Medicine Nephrology
DX: Z94.0 Kidney transplant status (principal); Z88.5 Allergy status to narcotic agent
CPT/HCPCS: 96365; J0485

== ENCOUNTER 2019-11-06 15:12 | Outpatient (CLI) | payer MEDICARE, BC ==
[~2019-11-06] VITALS: Ht 157.5 cm; Wt 91.0 kg
[~2019-11-06 15:12] MED LIST changes: -MECL-68 PO; +MECL1TAB31 PO
[2019-11-06 15:27] VITALS: BP 124/62
[2019-11-06] MEDS ORDERED: NS IV ONE (16:00)
[2019-11-06] MEDS ORDERED: BELATACEPT IV ONE (16:00)
[2019-11-06 16:25] VITALS: BP 115/63
== END 2019-11-06 16:25 | disposition home or self-care (01) ==
LOC: M INFU 15:12
PROVIDERS: ATTEND Internal Medicine Nephrology
DX: Z94.0 Kidney transplant status (principal); Z88.3 Allergy status to other anti-infective agents; Z88.5 Allergy status to narcotic agent
CPT/HCPCS: 96365; J0485

== ENCOUNTER 2019-12-11 15:07 | Outpatient (CLI) | payer MEDICARE, BC ==
[~2019-12-11] VITALS: Ht 157.5 cm; Wt 91.0 kg
[~2019-12-11 15:07] MED LIST changes: +[UNRECOGNIZED DRUG - CODE] XX; -[UNRECOGNIZED DRUG - CODE] XX
[2019-12-11] MEDS ORDERED: NS IV ONE (15:15)
[2019-12-11] MEDS ORDERED: BELATACEPT IV ONE (15:15)
[2019-12-11 15:21] VITALS: BP 153/80
[2019-12-11 16:25] VITALS: BP 111/59
== END 2019-12-11 16:25 | disposition home or self-care (01) ==
LOC: M INFU 15:07
PROVIDERS: ATTEND Internal Medicine Nephrology
DX: Z94.0 Kidney transplant status (principal); Z88.3 Allergy status to other anti-infective agents; Z88.5 Allergy status to narcotic agent
CPT/HCPCS: 96365; J0485

== ENCOUNTER 2020-01-15 15:09 | Outpatient (CLI) | payer MEDICARE, BC ==
[~2020-01-15] VITALS: Ht 157.5 cm; Wt 91.0 kg
[~2020-01-15 15:09] MED LIST changes: +[UNRECOGNIZED DRUG - CODE] XX; -[UNRECOGNIZED DRUG - CODE] XX
[2020-01-15 15:24] VITALS: BP 149/64
[2020-01-15] MEDS ORDERED: BELATACEPT IV ONE (15:30)
[2020-01-15] MEDS ORDERED: NS IV ONE (15:30)
[2020-01-15 16:21] VITALS: BP 117/57
== END 2020-01-15 16:22 | disposition home or self-care (01) ==
LOC: M INFU 15:09
PROVIDERS: ATTEND Internal Medicine Nephrology
DX: Z94.0 Kidney transplant status (principal); Z88.5 Allergy status to narcotic agent; Z88.8 Allergy status to other drugs, medicaments and biological substances
CPT/HCPCS: 96365; J0485

== ENCOUNTER 2020-02-19 15:24 | Outpatient (CLI) | payer MEDICARE, BC ==
[~2020-02-19] VITALS: Ht 157.5 cm; Wt 91.0 kg
[2020-02-19 15:30] VITALS: BP 131/81
[2020-02-19] MEDS ORDERED: BELATACEPT IV ONE (15:45)
[2020-02-19] MEDS ORDERED: NS IV ONE (15:45)
[2020-02-19 17:00] VITALS: BP 129/71
== END 2020-02-19 17:00 | disposition home or self-care (01) ==
LOC: M INFU 15:24
PROVIDERS: ATTEND Internal Medicine Nephrology
DX: Z94.0 Kidney transplant status (principal); Z88.5 Allergy status to narcotic agent; Z88.8 Allergy status to other drugs, medicaments and biological substances
CPT/HCPCS: 96365; J0485

== ENCOUNTER 2020-03-25 12:53 | Outpatient (CLI) | payer MEDICARE, BC ==
[~2020-03-25] VITALS: Ht 157.5 cm; Wt 91.0 kg
[~2020-03-25 12:53] MED LIST changes: +PANT40TA29 PO; -PANT40TA3 PO
[2020-03-25] MEDS ORDERED: NS IV ONE (13:00)
[2020-03-25] MEDS ORDERED: BELATACEPT IV ONE (13:00)
[2020-03-25 13:07] VITALS: BP 114/58
[2020-03-25 14:20] VITALS: BP 137/58
== END 2020-03-25 14:15 | disposition home or self-care (01) ==
LOC: M INFU 12:53
PROVIDERS: ATTEND Internal Medicine Nephrology
DX: Z94.0 Kidney transplant status (principal)
CPT/HCPCS: 96365; J0485

== ENCOUNTER 2020-04-29 13:00 | Outpatient (CLI) | payer MEDICARE, BC ==
[~2020-04-29 13:00] MED LIST changes: +BELATACEPT ONE
== END 2020-04-29 14:30 | disposition home or self-care (01) ==
LOC: M INFU 13:00
PROVIDERS: ATTEND Internal Medicine Nephrology
DX: Z94.0 Kidney transplant status (principal)
CPT/HCPCS: 96365; J0485

== ENCOUNTER 2020-06-03 12:58 | Outpatient (CLI) | payer MEDICARE, BC ==
[~2020-06-03] VITALS: Ht 157.5 cm; Wt 91.0 kg
[~2020-06-03 12:58] MED LIST changes: -BELATACEPT ONE
[2020-06-03] MEDS ORDERED: BELATACEPT IV ONE (13:00)
[2020-06-03] MEDS ORDERED: NS IV ONE (13:00)
[2020-06-03 13:21] VITALS: BP 139/76
[2020-06-03 14:00] VITALS: BP 132/70
== END 2020-06-03 14:15 | disposition home or self-care (01) ==
LOC: M INFU 12:58
PROVIDERS: ATTEND Internal Medicine Nephrology
DX: Z94.0 Kidney transplant status (principal); Z88.6 Allergy status to analgesic agent; Z88.8 Allergy status to other drugs, medicaments and biological substances
CPT/HCPCS: 96365; J0485

== ENCOUNTER 2020-07-09 14:17 | Outpatient (CLI) | payer MEDICARE, BC ==
[~2020-07-09] VITALS: Ht 157.5 cm; Wt 91.0 kg
[2020-07-09] MEDS ORDERED: BELATACEPT IV ONE (14:30)
[2020-07-09] MEDS ORDERED: NS IV ONE (14:30)
[2020-07-09 14:54] VITALS: BP 149/68
[2020-07-09] MEDS ORDERED: PRED5PAK PO (15:06)
[2020-07-09] MEDS ORDERED: MYCO1TAB2 PO (15:06)
[2020-07-09 15:29] VITALS: BP 149/68
[2020-07-09 15:30] VITALS: BP 122/79
== END 2020-07-09 15:30 | disposition home or self-care (01) ==
LOC: M INFU 14:17
PROVIDERS: ATTEND Internal Medicine Nephrology
DX: Z94.0 Kidney transplant status (principal)
CPT/HCPCS: 96365; J0485

== ENCOUNTER 2020-08-06 11:18 | Outpatient (CLI) | payer MEDICARE, BC ==
[~2020-08-06] VITALS: Ht 157.5 cm; Wt 91.0 kg
[~2020-08-06 11:18] MED LIST changes: +MYCO1TAB2 PO; +PRED5PAK PO
[2020-08-06 11:25] VITALS: BP 138/62
[2020-08-06] MEDS ORDERED: NS IV ONE (11:30)
[2020-08-06] MEDS ORDERED: BELATACEPT IV ONE (11:30)
[2020-08-06 11:46] VITALS: BP 135/62
[2020-08-06 12:20] VITALS: BP 126/68
[2020-08-06 12:35] VITALS: BP 126/68
== END 2020-08-06 12:35 | disposition home or self-care (01) ==
LOC: M INFU 11:18
PROVIDERS: ATTEND Internal Medicine Nephrology
DX: Z94.0 Kidney transplant status (principal); Z88.6 Allergy status to analgesic agent; Z88.8 Allergy status to other drugs, medicaments and biological substances
CPT/HCPCS: 96365; J0485

== ENCOUNTER 2020-09-03 12:56 | Outpatient (CLI) | payer MEDICARE, BC ==
[~2020-09-03] VITALS: Ht 157.5 cm; Wt 91.0 kg
[2020-09-03 13:00] VITALS: BP 135/82
[2020-09-03] MEDS ORDERED: NS IV ONE (13:00)
[2020-09-03] MEDS ORDERED: BELATACEPT IV ONE (13:00)
[2020-09-03 14:30] VITALS: BP 122/62
== END 2020-09-03 14:30 | disposition home or self-care (01) ==
LOC: M INFU 12:56
PROVIDERS: ATTEND Internal Medicine Nephrology
DX: Z94.0 Kidney transplant status (principal); Z88.6 Allergy status to analgesic agent
CPT/HCPCS: 96365; J0485

== ENCOUNTER 2020-10-01 13:24 | Outpatient (CLI) | payer MEDICARE, BC ==
[~2020-10-01] VITALS: Ht 157.5 cm; Wt 91.0 kg
[2020-10-01 13:30] VITALS: BP_SYST 130; BP_SYST 140; BP_DIAS 61; BP_DIAS 86
[2020-10-01] MEDS ORDERED: BELATACEPT IV ONE (13:30)
[2020-10-01] MEDS ORDERED: NS IV ONE (13:30)
[2020-10-01 14:16] VITALS: BP 130/61
[2020-10-01 14:45] VITALS: BP 129/61
== END 2020-10-01 14:45 | disposition home or self-care (01) ==
LOC: M INFU 13:24
PROVIDERS: ATTEND Internal Medicine Nephrology
DX: Z94.0 Kidney transplant status (principal); Z88.6 Allergy status to analgesic agent; Z88.8 Allergy status to other drugs, medicaments and biological substances
CPT/HCPCS: 96365; J0485

== ENCOUNTER 2020-10-29 12:46 | Outpatient (CLI) | payer MEDICARE, BC ==
[~2020-10-29] VITALS: Ht 157.5 cm; Wt 91.0 kg
[2020-10-29 12:58] VITALS: BP 142/70
[2020-10-29] MEDS ORDERED: NS IV ONE (13:00)
[2020-10-29] MEDS ORDERED: BELATACEPT IV ONE (13:00)
[2020-10-29 14:50] VITALS: BP 127/77
== END 2020-10-29 14:50 | disposition home or self-care (01) ==
LOC: M INFU 12:46
PROVIDERS: ATTEND Internal Medicine Nephrology
DX: Z94.0 Kidney transplant status (principal); Z88.6 Allergy status to analgesic agent; Z88.8 Allergy status to other drugs, medicaments and biological substances
CPT/HCPCS: 96365; J0485

== ENCOUNTER 2020-11-26 13:13 | Outpatient (CLI) | payer MEDICARE, BC ==
[~2020-11-26] VITALS: Ht 160 cm; Wt 100.4 kg
[2020-11-26 13:20] VITALS: BP 140/66
[2020-11-26] MEDS ORDERED: BELATACEPT IV ONE (13:30)
[2020-11-26] MEDS ORDERED: NS IV ONE (13:30)
[2020-11-26 14:30] VITALS: BP 116/56
== END 2020-11-26 14:30 | disposition home or self-care (01) ==
LOC: M INFU 13:13
PROVIDERS: ATTEND Internal Medicine Nephrology
DX: Z94.0 Kidney transplant status (principal); Z88.6 Allergy status to analgesic agent; Z88.8 Allergy status to other drugs, medicaments and biological substances
CPT/HCPCS: 96365; J0485

== ENCOUNTER 2020-12-31 08:59 | Outpatient (CLI) | payer MEDICARE, BC ==
[~2020-12-31] VITALS: Ht 157.5 cm; Wt 91.0 kg
[~2020-12-31 08:59] MED LIST changes: +FERR324T21 PO; -FERR325T16 PO
[2020-12-31] MEDS ORDERED: BELATACEPT IV ONE (09:00)
[2020-12-31] MEDS ORDERED: NS IV ONE (09:00)
[2020-12-31 09:05] VITALS: BP 122/83
[2020-12-31 10:34] VITALS: BP 122/70
[2020-12-31 12:45] VITALS: BP 127/73
[2020-12-31 14:30] VITALS: BP 125/61
== END 2020-12-31 10:35 | disposition home or self-care (01) ==
LOC: M INFU 08:59
PROVIDERS: ATTEND Internal Medicine Nephrology
DX: Z94.0 Kidney transplant status (principal); Z88.8 Allergy status to other drugs, medicaments and biological substances; Z88.6 Allergy status to analgesic agent
CPT/HCPCS: 96365; J0485

== ENCOUNTER 2021-01-28 13:16 | Outpatient (CLI) | payer MEDICARE, BC ==
[~2021-01-28] VITALS: Ht 157.5 cm; Wt 91.0 kg
[2021-01-28 13:25] VITALS: BP 151/80
[2021-01-28] MEDS ORDERED: BELATACEPT IV ONE (13:30)
[2021-01-28] MEDS ORDERED: NS IV ONE (13:30)
[2021-01-28 14:45] VITALS: BP 126/74
== END 2021-01-28 14:45 | disposition home or self-care (01) ==
LOC: M INFU 13:16
PROVIDERS: ATTEND Internal Medicine Nephrology
DX: Z94.0 Kidney transplant status (principal)
CPT/HCPCS: 96365; J0485

== ENCOUNTER 2021-02-25 12:29 | Outpatient (CLI) | payer MEDICARE, BC ==
[~2021-02-25 12:29] MED LIST changes: +BELATACEPT IV ONE; +NS IV ONE
[2021-02-25 12:40] VITALS: BP 141/84
[2021-02-25 13:30] VITALS: BP 150/76
== END 2021-02-25 13:30 | disposition home or self-care (01) ==
LOC: M INFU 12:29
PROVIDERS: ATTEND Internal Medicine Nephrology
DX: Z94.0 Kidney transplant status (principal)
CPT/HCPCS: 96365; J0485

== ENCOUNTER 2021-03-31 13:57 | Outpatient (CLI) | payer MEDICARE, BC ==
[~2021-03-31] VITALS: Ht 157.5 cm; Wt 91.0 kg
[2021-03-31 14:00] VITALS: BP 135/83
[2021-03-31 15:35] VITALS: BP 116/60
== END 2021-03-31 15:35 | disposition home or self-care (01) ==
LOC: M INFU 13:57
PROVIDERS: ATTEND Internal Medicine Nephrology
DX: Z94.0 Kidney transplant status (principal); Z88.6 Allergy status to analgesic agent
CPT/HCPCS: 96365; J0485

== ENCOUNTER 2021-04-28 13:18 | Outpatient (CLI) | payer MEDICARE, BC ==
[~2021-04-28] VITALS: Ht 157.5 cm; Wt 91.0 kg
[~2021-04-28 13:18] MED LIST changes: -BELATACEPT IV ONE; -KLOR10TA76 PO; -KLOR20TA42 PO; -NS IV ONE; +POTA-136 PO; +POTA-141 PO
[2021-04-28 13:30] VITALS: BP 132/57
[2021-04-28] MEDS ORDERED: NS IV ONE (13:30)
[2021-04-28] MEDS ORDERED: BELATACEPT IV ONE (13:30)
[2021-04-28 15:00] VITALS: BP 112/55
== END 2021-04-28 15:00 | disposition home or self-care (01) ==
LOC: M INFU 13:18
PROVIDERS: ATTEND Internal Medicine Nephrology
DX: Z94.0 Kidney transplant status (principal); Z88.6 Allergy status to analgesic agent
CPT/HCPCS: 96365; J0485

== ENCOUNTER 2021-05-26 13:45 | Outpatient (CLI) | payer MEDICARE, BC ==
[~2021-05-26] VITALS: Ht 157.5 cm; Wt 91.0 kg
[~2021-05-26 13:45] MED LIST changes: +BELATACEPT IV ONE; +KLOR10TA76 PO; +KLOR20TA42 PO; +NS IV ONE; -POTA-136 PO; -POTA-141 PO
[2021-05-26 13:56] VITALS: BP 121/62
[2021-05-26 15:15] VITALS: BP 124/61
== END 2021-05-26 15:15 | disposition home or self-care (01) ==
LOC: M INFU 13:45
PROVIDERS: ATTEND Internal Medicine Nephrology
DX: Z94.0 Kidney transplant status (principal); Z88.8 Allergy status to other drugs, medicaments and biological substances
CPT/HCPCS: 96365; J0485

== ENCOUNTER → 2021-06-07 | Outpatient (REF) | payer MEDICARE, BC ==
[~2021-06-07] MED LIST changes: -BELATACEPT IV ONE; -KLOR10TA76 PO; -KLOR20TA42 PO; -NS IV ONE; +POTA-136 PO; +POTA-141 PO
== END ==
LOC: M LAB REF 13:15
PROVIDERS: ATTEND Internal Medicine Nephrology
DX: N39.0 Urinary tract infection, site not specified (principal)

== ENCOUNTER 2021-06-24 13:14 | Outpatient (CLI) | payer MEDICARE, BC ==
[~2021-06-24] VITALS: Ht 157.5 cm; Wt 91.0 kg
[2021-06-24] MEDS ORDERED: BELATACEPT IV ONE (13:30)
[2021-06-24] MEDS ORDERED: NS IV ONE (13:30)
[2021-06-24 13:37] VITALS: BP 138/79
[2021-06-24 14:32] VITALS: BP 130/76
== END 2021-06-24 14:30 | disposition home or self-care (01) ==
LOC: M INFU 13:14
PROVIDERS: ATTEND Internal Medicine Nephrology
DX: Z94.0 Kidney transplant status (principal); Z88.8 Allergy status to other drugs, medicaments and biological substances
CPT/HCPCS: 96365; J0485

== ENCOUNTER 2021-07-26 13:32 | Outpatient (CLI) | payer MEDICARE, BC ==
[~2021-07-26] VITALS: Ht 157.5 cm; Wt 91.0 kg
[~2021-07-26 13:32] MED LIST changes: +BELATACEPT IV ONE; +NS IV ONE
[2021-07-26 13:45] VITALS: BP 132/63
[2021-07-26 15:00] VITALS: BP 131/63
== END 2021-07-26 15:00 | disposition home or self-care (01) ==
LOC: M INFU 13:32
PROVIDERS: ATTEND Internal Medicine Nephrology
DX: Z94.0 Kidney transplant status (principal); Z88.8 Allergy status to other drugs, medicaments and biological substances
CPT/HCPCS: 96365; J0485

== ENCOUNTER 2021-08-24 13:27 | Outpatient (CLI) | payer MEDICARE, BC ==
[~2021-08-24] VITALS: Ht 157.5 cm; Wt 91.0 kg
[~2021-08-24 13:27] MED LIST changes: -BELATACEPT IV ONE; -NS IV ONE
[2021-08-24] MEDS ORDERED: NS IV ONE (13:30)
[2021-08-24] MEDS ORDERED: BELATACEPT IV ONE (13:30)
[2021-08-24 13:35] VITALS: BP 136/67
[2021-08-24 15:25] VITALS: BP 127/77
== END 2021-08-24 15:25 | disposition home or self-care (01) ==
LOC: M INFU 13:27
PROVIDERS: ATTEND Internal Medicine Nephrology
DX: Z94.0 Kidney transplant status (principal); Z88.6 Allergy status to analgesic agent; Z88.8 Allergy status to other drugs, medicaments and biological substances
CPT/HCPCS: 36592; 82310; 96365; J0485

== ENCOUNTER 2021-09-26 13:29 | Outpatient (CLI) | payer MEDICARE, OTHER ==
[~2021-09-26] VITALS: Ht 157.5 cm; Wt 91.0 kg
[2021-09-26 12:30] VITALS: BP 160/70
[2021-09-26] MEDS ORDERED: BELATACEPT IV ONE (13:30)
[2021-09-26] MEDS ORDERED: NS IV ONE (13:30)
[2021-09-26 14:53] VITALS: BP 148/78
== END 2021-09-26 14:55 | disposition home or self-care (01) ==
LOC: M INFU 13:29
PROVIDERS: ATTEND Internal Medicine Nephrology
DX: Z94.0 Kidney transplant status (principal); Z88.5 Allergy status to narcotic agent
CPT/HCPCS: 96365; J0485

== ENCOUNTER 2021-10-28 15:30 | Outpatient (CLI) | payer MEDICARE, OTHER ==
[~2021-10-28] VITALS: Ht 157.5 cm; Wt 100.0 kg
[2021-10-28 16:07] VITALS: BP 126/71
[2021-10-28] MEDS: CALCIUM GLUCONATE 1,000 MG in D5W MINI-BAG PLUS 100 ML IV SCH ×2 (16:37→17:36)
[2021-10-28 17:50] VITALS: BP 119/59
[2021-10-28 18:54] VITALS: BP 125/61
== END 2021-10-28 18:55 | disposition home or self-care (01) ==
LOC: M INFU 15:30
PROVIDERS: ATTEND Internal Medicine Nephrology
DX: Z94.0 Kidney transplant status (principal); Z88.6 Allergy status to analgesic agent; Z88.8 Allergy status to other drugs, medicaments and biological substances
CPT/HCPCS: 96365; 96366; J0610

== ENCOUNTER 2021-10-31 12:08 | Emergency (ER) | payer MEDICARE, OTHER ==
[~2021-10-31] VITALS: Ht 157.5 cm; Wt 100.1 kg
[2021-10-31] MEDS ORDERED: POTA1TAB23 PO (12:38)
[2021-10-31 14:56] LABS: BASO % 0.3 % (0.0-1.0); EOS % 0.4 % (0.0-3.0); HEMOGLOBIN 12.2 g/dl (12.0-15.5); LYMPH # 1.1 10^3/uL (1.5-5.0); LYMPH % 14.4 % (24.0-44.0); MEAN CORPUSCULAR HEMOGLOBIN 28.4 pg (27.0-33.0); MEAN CORPUSCULAR HGB CONC 32.1 g/dl (32.0-36.5); MEAN CORPUSCULAR VOLUME 88.4 fl (80.0-96.0); MONO # 0.9 10^3/uL (0.0-0.8); MONO % 11.5 % (2.0-8.0); NEUTROPHILS # 5.8 10^3/uL (1.5-8.5); NEUTROPHILS % 73.1 % (36.0-66.0); PLATELET COUNT, AUTOMATED 219 10^3/uL (150-450); WHITE BLOOD COUNT 7.9 10^3/uL (4.0-10.0)
[2021-10-31 15:38] LABS: ALBUMIN 3.3 GM/DL (3.2-5.2); BILIRUBIN,DIRECT 0.2 MG/DL (0.0-0.2); BILIRUBIN,TOTAL 0.7 MG/DL (0.2-1.0); CREATININE FOR GFR 2.32 MG/DL (0.55-1.30); FREE T4 1.29 NG/DL (0.76-1.46); GLOMERULAR FILTRATION RATE 23.4 (>51); POTASSIUM SERUM 4.3 MEQ/L (3.5-5.1); THYROID STIMULATING HORMONE 0.825 uIU/ML (0.358-3.740); TOTAL PROTEIN 6.8 GM/DL (6.4-8.2)
[2021-10-31 16:31] VITALS: BP 119/59
== END 2021-10-31 17:02 | disposition home or self-care (01) ==
LOC: M ED 12:08
DX: R53.83 Other fatigue (principal); R63.0 Anorexia; U09.9 Post COVID-19 condition, unspecified; I10 Essential (primary) hypertension; N28.9 Disorder of kidney and ureter, unspecified; Q61.3 Polycystic kidney, unspecified; Z94.0 Kidney transplant status

== ENCOUNTER 2021-11-09 12:51 | Outpatient (CLI) | payer MEDICARE, OTHER ==
[~2021-11-09] VITALS: Ht 157.5 cm; Wt 98.1 kg
[~2021-11-09 12:51] MED LIST changes: +POTA1TAB23 PO
[2021-11-09 13:00] VITALS: BP 142/72
[2021-11-09] MEDS ORDERED: BELATACEPT IV ONE (13:00)
[2021-11-09] MEDS ORDERED: NS IV ONE (13:00)
[2021-11-09] MEDS ORDERED: NULO250I IV (13:50)
[2021-11-09 14:40] VITALS: BP 120/65
== END 2021-11-09 14:40 | disposition home or self-care (01) ==
LOC: M INFU 12:51
PROVIDERS: ATTEND Internal Medicine Nephrology
DX: Z94.0 Kidney transplant status (principal); Z88.6 Allergy status to analgesic agent; Z88.8 Allergy status to other drugs, medicaments and biological substances
CPT/HCPCS: 96365; J0485

== ENCOUNTER 2021-12-14 13:00 | Outpatient (CLI) | payer MEDICARE, OTHER ==
[~2021-12-14] VITALS: Ht 157.5 cm; Wt 98.1 kg
[~2021-12-14 13:00] MED LIST changes: +BELATACEPT IV ONE; +NS IV ONE; +NULO250I IV
[2021-12-14 13:05] VITALS: BP 131/90
[2021-12-14] MEDS ORDERED: BELATACEPT IV ONE (14:00)
[2021-12-14] MEDS ORDERED: NS IV ONE (14:00)
== END 2021-12-14 14:45 | disposition home or self-care (01) ==
LOC: M INFU 13:00
PROVIDERS: ATTEND Internal Medicine Nephrology
DX: Z94.0 Kidney transplant status (principal); Z88.6 Allergy status to analgesic agent; Z88.8 Allergy status to other drugs, medicaments and biological substances
CPT/HCPCS: 96365; J0485

== ENCOUNTER 2022-02-06 13:22 | Outpatient (CLI) | payer MEDICARE, OTHER ==
[~2022-02-06] VITALS: Ht 160 cm; Wt 102.7 kg
[2022-02-06 13:25] VITALS: BP 164/78
[2022-02-06 14:45] VITALS: BP 146/68
== END 2022-02-06 14:45 | disposition home or self-care (01) ==
LOC: M INFU 13:22
PROVIDERS: ATTEND Internal Medicine Nephrology
DX: Z94.0 Kidney transplant status (principal); Z88.8 Allergy status to other drugs, medicaments and biological substances
CPT/HCPCS: 96365; J0485

== ENCOUNTER → 2022-02-24 | Outpatient (REF) | payer MEDICARE, OTHER ==
[~2022-02-24] MED LIST changes: -BELATACEPT IV ONE; -NS IV ONE
[2022-02-24 18:29] LABS: C REACTIVE PROTEIN QUANTITATIV 1.05 MG/DL (0.00-0.30); RHEUMATOID FACTOR QUANT < 10.0 IU/ML (<15.0)
== END ==
LOC: M LAB REF 17:01
PROVIDERS: ATTEND Internal Medicine Nephrology
DX: M06.9 Rheumatoid arthritis, unspecified (principal)

== ENCOUNTER 2022-03-13 13:03 | Outpatient (CLI) | payer OTHER ==
[~2022-03-13] VITALS: Ht 157.5 cm; Wt 98.1 kg
[~2022-03-13 13:03] MED LIST changes: +BELATACEPT IV ONE; +NS IV ONE
[2022-03-13 13:05] VITALS: BP 148/70
[2022-03-13 14:35] VITALS: BP 128/66
== END 2022-03-13 14:45 | disposition home or self-care (01) ==
LOC: M INFU 13:03
PROVIDERS: ATTEND Internal Medicine Nephrology
DX: Z94.0 Kidney transplant status (principal); Z88.8 Allergy status to other drugs, medicaments and biological substances
CPT/HCPCS: 96365; J0485

== ENCOUNTER 2022-04-14 14:45 | Outpatient (CLI) | payer BC, MEDICARE ==
[~2022-04-14] VITALS: Ht 162.6 cm; Wt 100.0 kg
[2022-04-14 15:00] VITALS: BP 139/78
[2022-04-14 16:33] VITALS: BP 139/76
== END 2022-04-14 16:35 ==
LOC: M INFU 14:45
PROVIDERS: ATTEND Internal Medicine Nephrology
DX: Z94.0 Kidney transplant status (principal); Z88.8 Allergy status to other drugs, medicaments and biological substances
CPT/HCPCS: 96365; J0485

== ENCOUNTER 2022-05-17 13:30 | Outpatient (CLI) | payer OTHER ==
[~2022-05-17] VITALS: Ht 160 cm; Wt 68.2 kg
[2022-05-17 13:50] VITALS: BP 139/71
[2022-05-17 15:15] VITALS: BP 135/77
[2022-05-17 15:20] VITALS: BP 135/77
== END 2022-05-17 15:20 | disposition home or self-care (01) ==
LOC: M INFU 13:30
PROVIDERS: ATTEND Internal Medicine Nephrology
DX: Z94.0 Kidney transplant status (principal); Z88.5 Allergy status to narcotic agent; Z88.8 Allergy status to other drugs, medicaments and biological substances
CPT/HCPCS: 96365; J0485

== ENCOUNTER 2022-06-13 12:55 | Outpatient (CLI) | payer MEDICARE, OTHER ==
[~2022-06-13] VITALS: Ht 160 cm; Wt 68.0 kg
[~2022-06-13 12:55] MED LIST changes: -BELATACEPT IV ONE; -NS IV ONE
[2022-06-13] MEDS ORDERED: BELATACEPT IV ONE (13:00)
[2022-06-13] MEDS ORDERED: NS IV ONE (13:00)
[2022-06-13 13:10] VITALS: BP 139/63
[2022-06-13 14:15] VITALS: BP 128/64
== END 2022-06-13 14:15 | disposition home or self-care (01) ==
LOC: M INFU 12:55
PROVIDERS: ATTEND Internal Medicine Nephrology
DX: Z94.0 Kidney transplant status (principal); Z88.5 Allergy status to narcotic agent; Z88.8 Allergy status to other drugs, medicaments and biological substances
CPT/HCPCS: 96365; J0485

== ENCOUNTER 2022-07-07 14:25 | Outpatient (CLI) | payer OTHER ==
[~2022-07-07] VITALS: Ht 160 cm; Wt 100.0 kg
[2022-07-07 14:25] VITALS: BP 151/71
[2022-07-07] MEDS ORDERED: NS IV ONE (14:30)
[2022-07-07] MEDS ORDERED: BELATACEPT IV ONE (14:30)
[2022-07-07 15:50] VITALS: BP 186/87
== END 2022-07-07 15:50 | disposition home or self-care (01) ==
LOC: M INFU 14:25
PROVIDERS: ATTEND Internal Medicine Nephrology
DX: Z94.0 Kidney transplant status (principal); Z88.5 Allergy status to narcotic agent; Z88.8 Allergy status to other drugs, medicaments and biological substances
CPT/HCPCS: 96365; J0485

== ENCOUNTER 2022-08-10 12:40 | Outpatient (CLI) | payer MEDICARE, OTHER ==
[~2022-08-10] VITALS: Ht 160 cm; Wt 100.0 kg
[~2022-08-10 12:40] MED LIST changes: +BELATACEPT IV ONE; +NS IV ONE
[2022-08-10 13:05] VITALS: BP 156/67
[2022-08-10 14:25] VITALS: BP 138/65
== END 2022-08-10 14:25 | disposition home or self-care (01) ==
LOC: M INFU 12:40
PROVIDERS: ATTEND Internal Medicine Nephrology
DX: Z94.0 Kidney transplant status (principal); Z88.5 Allergy status to narcotic agent; Z88.8 Allergy status to other drugs, medicaments and biological substances
CPT/HCPCS: 96365; J0485

== ENCOUNTER 2022-09-01 13:00 | Outpatient (CLI) | payer MEDICARE, OTHER ==
[~2022-09-01] VITALS: Ht 154.9 cm; Wt 100.0 kg
[2022-09-01 13:00] VITALS: BP 145/80
[2022-09-01 14:45] VITALS: BP 138/92
== END 2022-09-01 14:45 | disposition home or self-care (01) ==
LOC: M INFU 13:00
PROVIDERS: ATTEND Internal Medicine Nephrology
DX: Z94.0 Kidney transplant status (principal); Z88.5 Allergy status to narcotic agent; Z88.8 Allergy status to other drugs, medicaments and biological substances
CPT/HCPCS: 96365; J0485

== ENCOUNTER 2022-09-29 12:43 | Outpatient (CLI) | payer MEDICARE, OTHER ==
[~2022-09-29] VITALS: Ht 154.9 cm; Wt 100.0 kg
[~2022-09-29 12:43] MED LIST changes: -BELATACEPT IV ONE; -NS IV ONE
[2022-09-29 13:00] VITALS: BP 138/70
[2022-09-29] MEDS ORDERED: BELATACEPT IV ONE (13:00)
[2022-09-29] MEDS ORDERED: NS IV ONE (13:00)
[2022-09-29 14:30] VITALS: BP 133/69
== END 2022-09-29 14:30 | disposition home or self-care (01) ==
LOC: M INFU 12:43
PROVIDERS: ATTEND Internal Medicine Nephrology
DX: Z94.0 Kidney transplant status (principal); Z88.5 Allergy status to narcotic agent; Z88.8 Allergy status to other drugs, medicaments and biological substances
CPT/HCPCS: 96365; J0485

== ENCOUNTER 2022-10-27 13:15 | Outpatient (CLI) | payer MEDICARE, OTHER ==
[~2022-10-27] VITALS: Ht 157.5 cm; Wt 100.0 kg
[2022-10-27 13:15] VITALS: BP 146/88
[~2022-10-27 13:15] MED LIST changes: +BELATACEPT IV ONE; +NS IV ONE
[2022-10-27 15:30] VITALS: BP_SYST 121; BP_SYST 142; BP_DIAS 59; BP_DIAS 90
== END 2022-10-27 15:30 | disposition home or self-care (01) ==
LOC: M INFU 13:15
PROVIDERS: ATTEND Internal Medicine Nephrology
DX: Z94.0 Kidney transplant status (principal); Z88.5 Allergy status to narcotic agent; Z88.3 Allergy status to other anti-infective agents
CPT/HCPCS: 96365; J0485

== ENCOUNTER 2022-12-04 13:00 | Outpatient (CLI) | payer OTHER ==
[~2022-12-04] VITALS: Ht 160 cm; Wt 110.0 kg
[2022-12-04 13:12] VITALS: BP 135/62
[2022-12-04 14:35] VITALS: BP 137/75
== END 2022-12-04 14:35 | disposition home or self-care (01) ==
LOC: M INFU 13:00
PROVIDERS: ATTEND Internal Medicine Nephrology
DX: Z94.0 Kidney transplant status (principal); Z88.5 Allergy status to narcotic agent; Z88.8 Allergy status to other drugs, medicaments and biological substances
CPT/HCPCS: 96365; J0485

== ENCOUNTER 2022-12-25 12:10 | Outpatient (CLI) | payer OTHER ==
[~2022-12-25] VITALS: Ht 160 cm; Wt 110.0 kg
[~2022-12-25 12:10] MED LIST changes: -BELATACEPT IV ONE; -NS IV ONE
[2022-12-25] MEDS ORDERED: BELATACEPT IV ONE (13:00)
[2022-12-25] MEDS ORDERED: NS IV ONE (13:00)
[2022-12-25 13:35] VITALS: BP 139/81
[2022-12-25 14:55] VITALS: BP 135/77
== END 2022-12-25 14:55 | disposition home or self-care (01) ==
LOC: M INFU 12:10
PROVIDERS: ATTEND Internal Medicine Nephrology
DX: Z94.0 Kidney transplant status (principal); Z88.5 Allergy status to narcotic agent; Z88.8 Allergy status to other drugs, medicaments and biological substances
CPT/HCPCS: 96365; J0485

== ENCOUNTER 2023-01-24 12:52 | Outpatient (CLI) | payer OTHER ==
[~2023-01-24] VITALS: Ht 160 cm; Wt 110.0 kg
[2023-01-24] MEDS ORDERED: NS IV ONE (13:00)
[2023-01-24] MEDS ORDERED: BELATACEPT IV ONE (13:00)
[2023-01-24 13:35] VITALS: BP 141/63
[2023-01-24 14:57] VITALS: BP 117/66
== END 2023-01-24 15:00 | disposition home or self-care (01) ==
LOC: M INFU 12:52
PROVIDERS: ATTEND Internal Medicine Nephrology
DX: Z94.0 Kidney transplant status (principal); Z88.5 Allergy status to narcotic agent; Z88.8 Allergy status to other drugs, medicaments and biological substances
CPT/HCPCS: 96365; J0485

== ENCOUNTER 2023-02-26 13:15 | Outpatient (CLI) | payer OTHER ==
[~2023-02-26] VITALS: Ht 160 cm; Wt 110.0 kg
[2023-02-26 13:15] VITALS: BP 138/74; O2SAT 98
[~2023-02-26 13:15] MED LIST changes: +BELATACEPT IV ONE; +NS IV ONE
[2023-02-26 15:05] VITALS: BP 133/69
== END 2023-02-26 15:05 | disposition home or self-care (01) ==
LOC: M INFU 13:15
PROVIDERS: ATTEND Internal Medicine Nephrology
DX: Z94.0 Kidney transplant status (principal); Z88.5 Allergy status to narcotic agent; Z88.8 Allergy status to other drugs, medicaments and biological substances
CPT/HCPCS: 96365; J0485

== ENCOUNTER 2023-03-28 13:55 | Outpatient (CLI) | payer OTHER ==
[~2023-03-28] VITALS: Ht 157.5 cm; Wt 102.2 kg
[2023-03-28 13:55] VITALS: BP 191/98; O2SAT 98
[~2023-03-28 13:55] MED LIST changes: -BELATACEPT IV ONE; -NS IV ONE
[2023-03-28] MEDS ORDERED: NS IV ONE (14:00)
[2023-03-28] MEDS ORDERED: BELATACEPT IV ONE (14:00)
[2023-03-28 15:15] VITALS: BP 133/79; O2SAT 96
== END 2023-03-28 15:25 | disposition home or self-care (01) ==
LOC: M INFU 13:55
PROVIDERS: ATTEND Internal Medicine Nephrology
DX: Z94.0 Kidney transplant status (principal); Z88.5 Allergy status to narcotic agent; Z88.8 Allergy status to other drugs, medicaments and biological substances
CPT/HCPCS: 96365; J0485

== ENCOUNTER 2023-05-03 13:05 | Outpatient (CLI) | payer OTHER ==
[~2023-05-03] VITALS: Ht 162.6 cm; Wt 111.4 kg
[2023-05-03 13:10] VITALS: BP 129/59; O2SAT 98
[2023-05-03] MEDS ORDERED: BELATACEPT IV ONE (13:30)
[2023-05-03] MEDS ORDERED: NS IV ONE (13:30)
[2023-05-03 14:35] VITALS: BP 124/68; O2SAT 99
== END 2023-05-03 14:35 | disposition home or self-care (01) ==
LOC: M INFU 13:05
PROVIDERS: ATTEND Internal Medicine Nephrology
DX: Z94.0 Kidney transplant status (principal); Z88.5 Allergy status to narcotic agent; Z88.8 Allergy status to other drugs, medicaments and biological substances
CPT/HCPCS: 96365; J0485

== ENCOUNTER 2023-05-31 14:20 | Outpatient (CLI) | payer OTHER ==
[~2023-05-31] VITALS: Ht 157.5 cm; Wt 111.8 kg
[~2023-05-31 14:20] MED LIST changes: +BELATACEPT IV ONE; +MECL-209 PO; -MECL1TAB31 PO; +NS IV ONE
[2023-05-31 14:35] VITALS: BP 141/72; O2SAT 97
[2023-05-31 15:50] VITALS: BP 124/76; O2SAT 97
== END 2023-05-31 15:50 | disposition home or self-care (01) ==
LOC: M INFU 14:20
PROVIDERS: ATTEND Internal Medicine Nephrology
DX: Z94.0 Kidney transplant status (principal); Z88.5 Allergy status to narcotic agent
CPT/HCPCS: 96365; J0485

== ENCOUNTER 2023-07-03 12:40 | Outpatient (CLI) | payer OTHER ==
[~2023-07-03] VITALS: Ht 157.5 cm; Wt 111.6 kg
[2023-07-03 12:40] VITALS: BP 153/72; O2SAT 96
[~2023-07-03 12:40] MED LIST changes: -BELATACEPT IV ONE; -NS IV ONE
[2023-07-03] MEDS ORDERED: BELATACEPT IV ONE (13:00)
[2023-07-03] MEDS ORDERED: NS IV ONE (13:00)
[2023-07-03 14:10] VITALS: BP 133/60; O2SAT 98
== END 2023-07-03 14:10 ==
LOC: M INFU 12:40
PROVIDERS: ATTEND Internal Medicine Nephrology
DX: Z94.0 Kidney transplant status (principal); Z88.5 Allergy status to narcotic agent; Z88.8 Allergy status to other drugs, medicaments and biological substances
CPT/HCPCS: 96365; J0485

== ENCOUNTER 2023-08-03 13:10 | Outpatient (CLI) | payer OTHER ==
[~2023-08-03] VITALS: Ht 157.5 cm; Wt 111.3 kg
[2023-08-03 13:10] VITALS: BP 129/71; O2SAT 96
[2023-08-03] MEDS ORDERED: NS IV ONE (13:45)
[2023-08-03] MEDS ORDERED: BELATACEPT IV ONE (13:45)
[2023-08-03 15:15] VITALS: BP 129/77; O2SAT 97
== END 2023-08-03 15:15 ==
LOC: M INFU 13:10
PROVIDERS: ATTEND Internal Medicine Nephrology
DX: Z94.0 Kidney transplant status (principal); Z88.5 Allergy status to narcotic agent; Z88.8 Allergy status to other drugs, medicaments and biological substances
CPT/HCPCS: 96365; J0485

== ENCOUNTER 2023-09-10 16:13 | Outpatient (CLI) | payer OTHER ==
[~2023-09-10] VITALS: Ht 157.5 cm; Wt 122.0 kg
[2023-09-10 16:30] VITALS: BP 137/79; O2SAT 98
[2023-09-10] MEDS ORDERED: NS IV ONE (17:30)
[2023-09-10] MEDS ORDERED: BELATACEPT IV ONE (17:30)
[2023-09-10 18:12] VITALS: BP 128/75; O2SAT 99
== END 2023-09-10 18:15 ==
LOC: M INFU 16:13
PROVIDERS: ATTEND Internal Medicine Nephrology
DX: Z94.0 Kidney transplant status (principal); Z88.5 Allergy status to narcotic agent; Z88.8 Allergy status to other drugs, medicaments and biological substances
CPT/HCPCS: 96365; J0485

== ENCOUNTER 2023-10-15 08:00 | Outpatient (CLI) | payer MEDICARE, OTHER ==
[~2023-10-15] VITALS: Ht 157.5 cm; Wt 109.0 kg
[2023-10-15 08:12] VITALS: BP 119/57; O2SAT 96
[2023-10-15] MEDS ORDERED: NS IV ONE (08:30)
[2023-10-15] MEDS ORDERED: BELATACEPT IV ONE (08:30)
[2023-10-15 09:45] VITALS: BP 142/80; O2SAT 98
== END 2023-10-15 09:45 | disposition home or self-care (01) ==
LOC: M INFU 08:00
PROVIDERS: ATTEND Internal Medicine Nephrology
DX: Z94.0 Kidney transplant status (principal)
CPT/HCPCS: 96365; J0485

== ENCOUNTER → 2023-10-23 | Outpatient (REF) | payer OTHER ==
[2023-10-23 18:06] LABS: APPEARANCE, URINE CLEAR (CLEAR); BACTERIA, URINE AUTO NEGATIVE (NEGATIVE); BILIRUBIN, URINE AUTO NEGATIVE (NEGATIVE); BLOOD, URINE BLOOD NEGATIVE (NEGATIVE); COLOR, URINE YELLOW (YELLOW); GLUCOSE, URINE (UA) AUTO NEGATIVE (NEGATIVE); KETONE, URINE AUTO NEGATIVE (NEGATIVE); LEUKOCYTE ESTERASE, URINE AUTO 1+ (NEGATIVE); MUCUS, URINE SMALL (NEGATIVE); NITRITE, URINE AUTO NEGATIVE (NEGATIVE); PROTEIN, URINE AUTO NEGATIVE (NEGATIVE); RBC, URINE AUTO 0 /HPF (0-3); SQUAMOUS EPITHELIAL CELL UR AU 1 /HPF (0-6); TRANSITIONAL EPITHELIAL AUTO <1 /HPF; UROBILINOGEN, URINE AUTO 0.2 mg/dL (0.0-2.0); WBC, URINE AUTO 3 /HPF (0-3)
== END ==
LOC: M LABSMT 15:22
PROVIDERS: ATTEND Specialist
DX: R31.0 Gross hematuria (principal)

== ENCOUNTER 2023-11-12 12:00 | Outpatient (CLI) | payer OTHER ==
[~2023-11-12] VITALS: Ht 157.5 cm; Wt 110.0 kg
[2023-11-12 12:00] VITALS: BP 149/68; O2SAT 98
[2023-11-12] MEDS: NS IV ONE (12:43)
[2023-11-12] MEDS: BELATACEPT IV ONE (12:43)
[2023-11-12 13:25] VITALS: BP 140/76; O2SAT 99
== END 2023-11-12 13:25 ==
LOC: M INFU 12:00
PROVIDERS: ATTEND Internal Medicine Nephrology
DX: Z94.0 Kidney transplant status (principal); Z88.3 Allergy status to other anti-infective agents; Z88.5 Allergy status to narcotic agent
CPT/HCPCS: 96365; J0485

== ENCOUNTER 2023-12-20 09:07 | Outpatient (CLI) | payer OTHER ==
[2023-12-20 09:54] VITALS: BP 116/58; O2SAT 96
[2023-12-20] MEDS: BELATACEPT IV ONE (10:09)
[2023-12-20] MEDS: NS IV ONE (10:09)
[2023-12-20 10:50] VITALS: BP 124/65; O2SAT 97
== END 2023-12-20 10:50 ==
LOC: M INFU 09:07
PROVIDERS: ATTEND Internal Medicine Nephrology
DX: Z94.0 Kidney transplant status (principal); Z88.5 Allergy status to narcotic agent; Z88.8 Allergy status to other drugs, medicaments and biological substances
CPT/HCPCS: 96365; J0485

== ENCOUNTER 2024-01-17 12:10 | Outpatient (CLI) | payer OTHER ==
[~2024-01-17] VITALS: Ht 157.5 cm; Wt 109.0 kg
[2024-01-17 12:12] VITALS: BP 138/73; O2SAT 96
[2024-01-17] MEDS: BELATACEPT IV ONE (12:39)
[2024-01-17] MEDS: NS IV ONE (12:39)
[2024-01-17 13:20] VITALS: BP 116/60; O2SAT 98
== END 2024-01-17 13:20 ==
LOC: M INFU 12:10
PROVIDERS: ATTEND Internal Medicine Nephrology
DX: Z94.0 Kidney transplant status (principal); Z88.5 Allergy status to narcotic agent; Z88.8 Allergy status to other drugs, medicaments and biological substances
CPT/HCPCS: 96365; J0485

== ENCOUNTER 2024-02-14 11:54 | Outpatient (CLI) | payer OTHER, SELFPAY ==
[~2024-02-14] VITALS: Ht 157.5 cm; Wt 107.0 kg
[2024-02-14 12:05] VITALS: BP 123/58; O2SAT 97
[2024-02-14] MEDS: BELATACEPT IV ONE (12:28)
[2024-02-14] MEDS: NS IV ONE (12:28)
[2024-02-14 13:15] VITALS: BP 110/64; O2SAT 97
== END 2024-02-14 13:12 | disposition home or self-care (01) ==
LOC: M INFU 11:54
PROVIDERS: ATTEND Internal Medicine Nephrology
DX: Z94.0 Kidney transplant status (principal); Z88.5 Allergy status to narcotic agent; Z88.8 Allergy status to other drugs, medicaments and biological substances
CPT/HCPCS: 96365; J0485

== ENCOUNTER 2024-03-13 12:09 | Outpatient (CLI) | payer OTHER ==
[~2024-03-13] VITALS: Ht 157.5 cm; Wt 111.4 kg
[2024-03-13 12:20] VITALS: BP 136/68; O2SAT 96
[2024-03-13] MEDS: BELATACEPT IV ONE (13:23)
[2024-03-13] MEDS: NS IV ONE (13:23)
[2024-03-13 14:00] VITALS: BP 129/65; O2SAT 96
== END 2024-03-13 14:10 ==
LOC: M INFU 12:09
PROVIDERS: ATTEND Internal Medicine Nephrology
DX: Z94.0 Kidney transplant status (principal); Z88.5 Allergy status to narcotic agent; Z88.8 Allergy status to other drugs, medicaments and biological substances
CPT/HCPCS: 96365; J0485

== ENCOUNTER → 2024-04-10 | Outpatient (CLI) | payer OTHER, SELFPAY ==
[~2024-04-10] VITALS: Ht 157.5 cm; Wt 109.0 kg
[2024-04-10 12:10] VITALS: BP 176/85; O2SAT 97
[2024-04-10] MEDS: BELATACEPT IV ONE (12:47)
[2024-04-10] MEDS: NS IV ONE (12:47)
[2024-04-10 13:25] VITALS: BP 129/82; O2SAT 95
== END ==
LOC: M INFU 11:59
PROVIDERS: ATTEND Internal Medicine Nephrology
DX: Z94.0 Kidney transplant status (principal); Z88.5 Allergy status to narcotic agent; Z88.8 Allergy status to other drugs, medicaments and biological substances
CPT/HCPCS: 96365; J0485

== ENCOUNTER → 2024-05-06 | Outpatient (REF) | payer OTHER | LOC: M LAB REF 17:12 | PROVIDERS: ATTEND Internal Medicine Nephrology | DX: R31.9 Hematuria, unspecified (principal) ==

== ENCOUNTER 2024-05-15 13:25 | Outpatient (CLI) | payer OTHER ==
[~2024-05-15] VITALS: Ht 157.5 cm; Wt 109.0 kg
[2024-05-15 13:25] VITALS: BP 125/58; O2SAT 98
[~2024-05-15 13:25] MED LIST changes: +BELATACEPT IV ONE; +NS IV ONE
[2024-05-15] MEDS: NS IV ONE (14:40)
[2024-05-15] MEDS: BELATACEPT IV ONE (14:40)
[2024-05-15 15:20] VITALS: BP 128/62; O2SAT 98
== END 2024-05-15 15:20 ==
LOC: M INFU 13:25
PROVIDERS: ATTEND Internal Medicine Nephrology
DX: Z94.0 Kidney transplant status (principal); Z88.5 Allergy status to narcotic agent; Z88.8 Allergy status to other drugs, medicaments and biological substances
CPT/HCPCS: 96365; J0485

== ENCOUNTER 2024-06-12 12:30 | Outpatient (CLI) | payer OTHER ==
[~2024-06-12] VITALS: Ht 157.5 cm; Wt 109.0 kg
[2024-06-12 12:35] VITALS: BP 132/68; O2SAT 98
[2024-06-12] MEDS: BELATACEPT IV ONE (13:27)
[2024-06-12] MEDS: NS IV ONE (13:27)
[2024-06-12 14:10] VITALS: BP 129/60; O2SAT 98
== END 2024-06-12 14:10 ==
LOC: M INFU 12:30
PROVIDERS: ATTEND Internal Medicine Nephrology
DX: Z94.0 Kidney transplant status (principal); Z88.5 Allergy status to narcotic agent; Z88.8 Allergy status to other drugs, medicaments and biological substances
CPT/HCPCS: 96365; J0485

== ENCOUNTER 2024-07-10 11:59 | Outpatient (CLI) | payer OTHER ==
[~2024-07-10] VITALS: Ht 157.5 cm; Wt 111.0 kg
[~2024-07-10 11:59] MED LIST changes: -BELATACEPT IV ONE; -NS IV ONE
[2024-07-10 12:05] VITALS: BP 122/73; O2SAT 98
[2024-07-10] MEDS: NS IV ONE (12:57)
[2024-07-10] MEDS: BELATACEPT IV ONE (12:57)
[2024-07-10 13:30] VITALS: BP 117/59; O2SAT 96
== END 2024-07-10 13:40 ==
LOC: M INFU 11:59
PROVIDERS: ATTEND Internal Medicine Nephrology
DX: Z94.0 Kidney transplant status (principal); Z88.5 Allergy status to narcotic agent; Z88.8 Allergy status to other drugs, medicaments and biological substances
CPT/HCPCS: 96365; J0485

== ENCOUNTER 2024-08-13 14:45 | Outpatient (CLI) | payer OTHER ==
[~2024-08-13] VITALS: Ht 157.5 cm; Wt 109.0 kg
[2024-08-13 14:50] VITALS: BP 140/68; O2SAT 98
[2024-08-13] MEDS: BELATACEPT IV ONE (15:38)
[2024-08-13] MEDS: NS IV ONE (15:38)
[2024-08-13 16:15] VITALS: BP 158/68; O2SAT 99
== END 2024-08-13 16:15 | disposition home or self-care (01) ==
LOC: M INFU 14:45
PROVIDERS: ATTEND Internal Medicine Nephrology
DX: Z94.0 Kidney transplant status (principal); Z88.5 Allergy status to narcotic agent; Z88.8 Allergy status to other drugs, medicaments and biological substances
CPT/HCPCS: 96365; J0485

== ENCOUNTER 2024-09-10 12:50 | Outpatient (CLI) | payer OTHER ==
[~2024-09-10] VITALS: Ht 157.5 cm; Wt 112.0 kg
[2024-09-10 12:50] VITALS: BP 149/70; O2SAT 97
[2024-09-10] MEDS: NS IV ONE (12:59)
[2024-09-10] MEDS: BELATACEPT IV ONE (12:59)
[2024-09-10 13:35] VITALS: BP 147/70; O2SAT 97
== END 2024-09-10 13:35 ==
LOC: M INFU 12:50
PROVIDERS: ATTEND Internal Medicine Nephrology
DX: Z94.0 Kidney transplant status (principal); Z88.5 Allergy status to narcotic agent; Z88.8 Allergy status to other drugs, medicaments and biological substances
CPT/HCPCS: 96365; J0485

== ENCOUNTER 2024-10-08 12:16 | Outpatient (CLI) | payer OTHER, SELFPAY ==
[~2024-10-08] VITALS: Ht 157.5 cm; Wt 109.0 kg
[2024-10-08 12:30] VITALS: BP 127/60; O2SAT 96
[2024-10-08] MEDS: NS IV ONE (13:31)
[2024-10-08] MEDS: BELATACEPT IV ONE (13:31)
[2024-10-08 14:10] VITALS: BP 135/65; O2SAT 93
== END 2024-10-08 14:10 ==
LOC: M INFU 12:16
PROVIDERS: ATTEND Internal Medicine Nephrology
DX: Z94.0 Kidney transplant status (principal); Z88.5 Allergy status to narcotic agent; Z88.8 Allergy status to other drugs, medicaments and biological substances
CPT/HCPCS: 96365; J0485

== ENCOUNTER 2024-11-05 12:00 | Outpatient (CLI) | payer OTHER ==
[~2024-11-05] VITALS: Ht 160 cm; Wt 109.0 kg
[2024-11-05 12:28] VITALS: BP 108/53; O2SAT 95
[2024-11-05] MEDS: BELATACEPT IV ONE (12:59)
[2024-11-05] MEDS: NS IV ONE (12:59)
[2024-11-05 13:45] VITALS: BP 118/59; O2SAT 94
== END 2024-11-05 13:45 ==
LOC: M INFU 12:00
PROVIDERS: ATTEND Internal Medicine Nephrology
DX: Z94.0 Kidney transplant status (principal); Z88.5 Allergy status to narcotic agent; Z88.8 Allergy status to other drugs, medicaments and biological substances
CPT/HCPCS: 96365; J0485

== ENCOUNTER 2024-12-05 10:32 | Outpatient (CLI) | payer OTHER ==
[~2024-12-05] VITALS: Ht 157.5 cm; Wt 109.1 kg
[~2024-12-05 10:32] MED LIST changes: +BELATACEPT IV ONE; +NS IV ONE
[2024-12-05 10:58] VITALS: BP 127/58; O2SAT 95
[2024-12-05] MEDS: NS IV ONE (11:26)
[2024-12-05] MEDS: BELATACEPT IV ONE (11:26)
[2024-12-05 12:03] VITALS: BP 118/58; O2SAT 95
== END 2024-12-05 12:05 | disposition home or self-care (01) ==
LOC: M INFU 10:32
PROVIDERS: ATTEND Internal Medicine Nephrology
DX: Z94.0 Kidney transplant status (principal); Z88.5 Allergy status to narcotic agent; Z88.8 Allergy status to other drugs, medicaments and biological substances
CPT/HCPCS: 96365; J0485

== ENCOUNTER → 2025-01-02 | Outpatient (CLI) | payer OTHER ==
[~2025-01-02] VITALS: Ht 157.5 cm; Wt 109.0 kg
[~2025-01-02] MED LIST changes: -BELATACEPT IV ONE; -NS IV ONE
[2025-01-02 10:00] VITALS: BP 116/57; O2SAT 98
[2025-01-02] MEDS: BELATACEPT IV ONE (11:12)
[2025-01-02] MEDS: NS IV ONE (11:12)
[2025-01-02 11:45] VITALS: BP 126/60; O2SAT 97
== END ==
LOC: M INFU 09:55
PROVIDERS: ATTEND Internal Medicine Nephrology
DX: Z94.0 Kidney transplant status (principal); Z88.5 Allergy status to narcotic agent; Z88.8 Allergy status to other drugs, medicaments and biological substances
CPT/HCPCS: 96365; J0485

== ENCOUNTER 2025-01-30 09:48 | Outpatient (CLI) | payer OTHER ==
[~2025-01-30] VITALS: Ht 157.5 cm; Wt 109.0 kg
[2025-01-30 10:00] VITALS: BP 126/79; O2SAT 97
[2025-01-30] MEDS: BELATACEPT IV ONE (10:00)
[2025-01-30] MEDS: NS IV ONE (10:00)
[2025-01-30 11:50] VITALS: BP 152/77; O2SAT 94
== END 2025-01-30 11:50 ==
LOC: M INFU 09:48
PROVIDERS: ATTEND Internal Medicine Nephrology
DX: Z94.0 Kidney transplant status (principal); Z88.5 Allergy status to narcotic agent; Z88.8 Allergy status to other drugs, medicaments and biological substances
CPT/HCPCS: 96365; 96366; J0485

== ENCOUNTER 2025-03-30 10:14 | Outpatient (CLI) | payer OTHER ==
[~2025-03-30] VITALS: Ht 157.5 cm; Wt 109.1 kg
[2025-03-30 10:34] VITALS: BP 143/67; O2SAT 97
[2025-03-30] MEDS: NS IV ONE (11:04)
[2025-03-30] MEDS: BELATACEPT IV ONE (11:04)
[2025-03-30 11:43] VITALS: BP 143/67; O2SAT 95
== END 2025-03-30 11:45 ==
LOC: M INFU 10:14
PROVIDERS: ATTEND Internal Medicine Nephrology
DX: Z94.0 Kidney transplant status (principal); Z88.5 Allergy status to narcotic agent; Z88.8 Allergy status to other drugs, medicaments and biological substances
CPT/HCPCS: 96365; J0485

== ENCOUNTER 2025-04-30 15:05 | Outpatient (CLI) | payer OTHER ==
[~2025-04-30] VITALS: Ht 157.5 cm; Wt 109.0 kg
[2025-04-30 15:10] VITALS: BP 130/69; O2SAT 97
[2025-04-30] MEDS: NS IV ONE (16:05)
[2025-04-30] MEDS: BELATACEPT IV ONE (16:05)
[2025-04-30 16:40] VITALS: BP 120/56; O2SAT 96
== END 2025-04-30 16:42 ==
LOC: M INFU 15:05
PROVIDERS: ATTEND Internal Medicine Nephrology
DX: Z94.0 Kidney transplant status (principal); Z88.5 Allergy status to narcotic agent; Z88.8 Allergy status to other drugs, medicaments and biological substances
CPT/HCPCS: 96365; J0485

== ENCOUNTER 2025-05-28 14:50 | Outpatient (CLI) | payer OTHER ==
[~2025-05-28] VITALS: Ht 157.5 cm; Wt 109.9 kg
[2025-05-28 14:55] VITALS: BP 140/62; O2SAT 97
[2025-05-28] MEDS: BELATACEPT IV ONE (15:51)
[2025-05-28] MEDS: NS IV ONE (15:51)
[2025-05-28 16:30] VITALS: BP 117/58; O2SAT 98
== END 2025-05-28 16:30 | disposition home or self-care (01) ==
LOC: M INFU 14:50
PROVIDERS: ATTEND Internal Medicine Nephrology
DX: Z94.0 Kidney transplant status (principal); Z88.5 Allergy status to narcotic agent; Z88.8 Allergy status to other drugs, medicaments and biological substances
CPT/HCPCS: 96365; J0485

== ENCOUNTER 2025-06-25 15:05 | Outpatient (CLI) | payer OTHER ==
[~2025-06-25] VITALS: Ht 157.5 cm; Wt 109.1 kg
[2025-06-25 15:15] VITALS: BP 130/81; O2SAT 96
[2025-06-25] MEDS: BELATACEPT IV ONE (16:22)
[2025-06-25] MEDS: NS IV ONE (16:22)
[2025-06-25 16:59] VITALS: BP 118/74; O2SAT 98
== END 2025-06-25 17:00 | disposition home or self-care (01) ==
LOC: M INFU 15:05
PROVIDERS: ATTEND Internal Medicine Nephrology
DX: Z94.0 Kidney transplant status (principal); Z88.5 Allergy status to narcotic agent; Z88.8 Allergy status to other drugs, medicaments and biological substances
CPT/HCPCS: 96365; 99195; J0485

== ENCOUNTER 2025-08-12 14:33 | Outpatient (CLI) | payer OTHER ==
[~2025-08-12 14:33] MED LIST changes: +BELATACEPT IV ONE; +NS IV ONE
[2025-08-12 14:45] VITALS: BP 126/61; O2SAT 98
[2025-08-12] MEDS: NS IV ONE (16:23)
[2025-08-12] MEDS: BELATACEPT IV ONE (16:23)
[2025-08-12 16:58] VITALS: BP 150/73; O2SAT 98
== END 2025-08-12 16:58 | disposition home or self-care (01) ==
LOC: M INFU 14:33
PROVIDERS: ATTEND Internal Medicine Nephrology
DX: Z94.0 Kidney transplant status (principal); Z88.5 Allergy status to narcotic agent; Z88.8 Allergy status to other drugs, medicaments and biological substances
CPT/HCPCS: 96365; J0485

== ENCOUNTER 2025-09-09 14:13 | Outpatient (CLI) | payer OTHER ==
[~2025-09-09] VITALS: Ht 157.5 cm; Wt 109.0 kg
[~2025-09-09 14:13] MED LIST changes: -BELATACEPT IV ONE; -NS IV ONE
[2025-09-09 14:25] VITALS: BP 133/62; O2SAT 100
[2025-09-09] MEDS: NS IV ONE (15:08)
[2025-09-09] MEDS: BELATACEPT IV ONE (15:08)
[2025-09-09 15:45] VITALS: BP 115/56; O2SAT 96
== END 2025-09-09 15:50 | disposition home or self-care (01) ==
LOC: M INFU 14:13
PROVIDERS: ATTEND Internal Medicine Nephrology
DX: Z94.0 Kidney transplant status (principal); Z88.5 Allergy status to narcotic agent; Z88.8 Allergy status to other drugs, medicaments and biological substances
CPT/HCPCS: 96365; J0485